=== PATIENT | male | born 1950 | race Caucasian/White ===

== ENCOUNTER 2017-11-10 12:21 | Inpatient (IN) | payer OTHER, MEDICARE ==
[2017-11-10 13:02] VITALS: BMI 23.3
[2017-11-10 13:48] LABS: BASO % 0.5 % (0.0-2.0); EOS # 0.1 K/uL (0.0-0.7); EOS % 1.2 % (0.0-4.0); LYMPH # 0.9 K/uL (1.0-4.3); LYMPH % 11.3 % (20.0-40.0); MEAN CELL VOLUME 84.6 fL (80.0-94.0); MEAN CORPUSCULAR HEMOGLOBIN 28.2 pg (27.0-31.0); MEAN CORPUSCULAR HGB CONC 33.4 g/dL (33.0-37.0); MEAN PLATELET VOLUME 9.6 fL (7.2-11.7); MONO # 0.6 K/uL (0.0-0.8); MONO % 7.5 % (0.0-10.0); NEUT # 6.6 K/uL (1.8-7.0); NEUT % 79.5 % (50.0-75.0); RBC 4.24 Mil/uL (4.40-5.90); RED CELL DISTRIBUTION WIDTH 12.9 % (11.5-14.5); WHITE BLOOD COUNT 8.3 K/uL (4.8-10.8)
[2017-11-10 13:56] LABS: PROTHROMBIN TIME 11.2 SECONDS (9.7-12.2)
--- NOTE | 2017-11-10 15:26 | VASCLAB ---
PROCEDURE: Left Lower Extremity Venous Duplex Exam. HISTORY: LLE swelling. r/o DVT. PRIORS: None. TECHNIQUE: Left common femoral, femoral, popliteal and posterior tibial, peroneal and great saphenous veins were evaluated. Flow was assessed with color Doppler, compressibility, assessment of phasic flow and augmentation response. Report prepared by NICHOL Curtis FINDINGS: LEFT: 1. Common Femoral Vein: 1.1. Compressibility - Fully compressible: Thrombus - None : Flow - Phasic: Augmentation -Normal: Reflux - None. 2. Femoral Vein: 2.1. Compressibility - Fully compressible: Thrombus - None: Flow - Phasic: Augmentation -Normal: Reflux - None. 3. Popliteal Vein: 3.1. Compressibility - Fully compressible: Thrombus - None: Flow - Phasic: Augmentation -Normal: Reflux - None. 4. Posterior Tibial Vein: 4.1. Compressibility - Fully compressible: Thrombus - None: Flow - Phasic: Augmentation -Normal: Reflux - None. 5. Peroneal Vein: 5.1. Compressibility - Fully compressible: Thrombus - None: Flow - Phasic: Augmentation -Normal: Reflux - None. 6. Great Saphenous Vein: 6.1. Compressibility - Fully compressible: Thrombus - None: Flow - Phasic: Augmentation - Normal: Reflux - None. OTHER FINDINGS: IMPRESSION: No evidence of deep or superficial vein thrombosis of the left lower extremity with excellent venous flow. Normal valve function noted of the left side. Normal venous flow noted in the right common femoral vein.
--- NOTE | 2017-11-10 15:29 | RAD ---
PROCEDURE: Left Foot Radiographs. HISTORY: Great toe ulcer/deformity. Foot swelling. COMPARISON: 04/11/2016 FINDINGS: BONES: Interval cortical irregularity ill definition learning for contiguous osteomyelitis the 1st distal phalanx -bordering soft tissue changes compatible with a large great toe ulcer Posterior and inferior calcaneal spurring Dorsal cortical hyperostoses talonavicular and tarsal metatarsal levels JOINTS: First proximal and 1st interphalangeal minimal joint space narrowing -degenerative changes SOFT TISSUES: Great toe tip mottled irregular soft tissue pattern compatible with a large ulcer here. Contiguous 1st distal phalangeal cortical changes concerning for contiguous osteomyelitis OTHER FINDINGS: Few vascular calcification between the 2nd and 3rd metatarsals and probable few phleboliths on oblique view IMPRESSION: Great toe tip mottled irregular soft tissue pattern compatible with a large ulcer here. Contiguous 1st distal phalangeal cortical changes concerning for contiguous osteomyelitis
[2017-11-10 15:40] LABS: ALBUMIN 3.6 g/dL (3.5-5.0); ALT/SGPT 24 U/L (21-72); AST/SGOT 21 U/L (17-59); BLOOD UREA NITROGEN 23 mg/dL (9-20); CALCIUM 8.7 mg/dl (8.6-10.4); GFR AFRICAN-AMERICAN > 60; GFR NON-AFRICAN AMERICAN 55
[2017-11-10] MEDS ORDERED: Piperacillin/Tazobact 3.375 gm 100 ML IVPB STA (16:10)
--- NOTE | 2017-11-10 16:19 | C.PDOC ---
Time Seen by Provider: 11/10/17 13:10 Chief Complaint (Nursing): Abnormal Skin Integrity History Per: Patient Onset/Duration Of Symptoms: Days (few) Current Symptoms Are (Timing): Worse Location Of Injury: Left: Foot (Great toe) Quality Of Symptoms: Painful, Swollen, Draining Severity: Severe Additional History Per: Prior Records Past Medical History Reviewed: Historical Data, Nursing Documentation, Vital Signs Vital Signs: Last Vital Signs Temp 98.3 F 11/10/17 16:12 Pulse 67 11/10/17 16:12 Resp 18 11/10/17 16:12 BP 138/71 11/10/17 16:12 Pulse Ox 98 11/10/17 16:12 - Medical History PMH: Diabetes, HTN Family History: States: Unknown Family Hx - Social History Hx Tobacco Use: No Hx Alcohol Use: No Hx Substance Use: No - Immunization History Hx Tetanus Toxoid Vaccination: No Hx Influenza Vaccination: Yes Hx Pneumococcal Vaccination: No Review Of Systems Except As Marked, All Systems Reviewed And Found Negative. Constitutional: Negative for: Fever Cardiovascular: Negative for: Chest Pain Respiratory: Negative for: Shortness of Breath Gastrointestinal: Negative for: Vomiting, Abdominal Pain Musculoskeletal: Negative for: Neck Pain, Back Pain Skin: Positive for: Lesions Neurological: Negative for: Weakness Physical Exam - Physical Exam Appears: Non-toxic, No Acute Distress Skin: Warm Head: Atraumatic, Normacephalic Eye(s): bilateral: PERRL, EOMI Neck: Normal ROM, Supple Cardiovascular: Rhythm Regular Respiratory: Normal Breath Sounds, No Accessory Muscle Use Gastrointestinal/Abdominal: Soft, No Tenderness Back: No CVA Tenderness, No Vertebral Tenderness Extremity: Normal ROM, Tenderness (left great toe), Pedal Edema (left), Swelling (left leg), Other (Left great toe infected ulcer, deep. ) Pulses: Left Dorsalis Pedis: Normal Neurological/Psych: Oriented x3, Normal Motor ED Course And Treatment - Laboratory Results Result Diagrams: 11/10/17 13:45 11/10/17 15:09 Lab Interpretation: Abnormal Interpretation Of Abnormal: Elevated ESR and CRP O2 Sat by Pulse Oximetry: 98 Pulse Ox Interpretation: Normal - Other Rad Left foot x-rays X-Ray: Viewed By Me, Read By Radiologist Interpretation: IMPRESSION: Great toe tip mottled irregular soft tissue pattern compatible with a large ulcer here. Contiguous 1st distal phalangeal cortical changes concerning for contiguous osteomyelitis - CT Scan/US LLE Duplex Other Rad Studies (CT/US): Read By Radiologist, Radiology Report Reviewed CT/US Interpretation: IMPRESSION: No evidence of deep or superficial vein thrombosis of the left lower extremity with excellent venous flow. Normal valve function noted of the left side. Normal venous flow noted in the right common femoral vein. Disposition Discussed With : Manuela Geronimo Comment: He accepted pt on his service. Doctor Will See Patient In The: Hospital Counseled Patient/Family Regarding: Studies Performed, Diagnosis - Disposition Disposition: HOSPITALIZED Disposition Time: 16:20 Condition: SERIOUS - Clinical Impression Clinical Impression: Acute osteomyelitis of toe of left foot, Diabetic ulcer of toe, Diabetic infection of left foot
[2017-11-10] MEDS ORDERED: Piperacillin/Tazobact 3.375 gm 100 ML IVPB ONE (16:20)
[2017-11-10] MEDS ORDERED: Piperacillin/Tazobact 3.375 GM in Sodium Chloride 100 ML IVPB SCH (20:15)
[2017-11-10] MEDS: Enoxaparin 40 mg Syringe SC SCH (21:53)
[2017-11-10] MEDS: (Novolog) Insulin Aspart, Recombinant 100 u/ml 10 ml vial SC SCH (22:00)
[2017-11-11] MEDS ORDERED: Piperacill/Tazo 3.375gm in Dex 3.375 GM/50 ML BAG IVPB SCH
[2017-11-11] MEDS ORDERED: Piperacill/Tazo 2.25gm in Dex 2.25 GM/50 ML BAG IVPB SCH
[2017-11-11] MEDS: Piperacill/Tazo 2.25gm in Dex 2.25 GM/50 ML BAG IVPB SCH ×4 (00:59→21:26)
--- NOTE | 2017-11-11 04:20 | HP ---
HISTORY OF PRESENT ILLNESS: This is a 67-year-old male, came to the emergency room with history of left big toe infection and swelling. The patient claims this is going on for the last 2 to 3 weeks. Seems it is getting cooled and using tight shoes, it is giving him pain. No history of any fever or chills. The patient has the foot ulcer also, which is appearing chronic. REVIEW OF SYSTEMS: Cardiovascular, respiratory, GI, and [employer] systems are negative. Left foot diabetic ulcer present with mild discharge. Left toe is infected. No urinary complaints. Psychiatrically, the patient is stable. ALLERGIES: THE PATIENT IS ALLERGIC TO METRONIDAZOLE. FAMILY HISTORY: No known family history. SOCIAL HISTORY: Nonsmoker, nonalcoholic, no IVDA. PAST HISTORY: History of hypertension and diabetes. MEDICATIONS: The patient is noncompliant with the medications. PHYSICAL EXAMINATION: GENERAL: This is a 67-year-old male, awake, alert, and comfortable. VITAL SIGNS: Temperature 98.3, pulse 67, respiratory rate 18, blood pressure 138/71 mmHg, and pulse ox is 98% on room air. HEENT: Normal. JVP is flat. Carotids, no bruits. LUNGS: No rales, no wheezing. HEART: S1 and S2 normal. No gallop, no murmur. ABDOMEN: Soft and nontender. No organomegaly. CENTRAL NERVOUS SYSTEM: No focal neurological deficit. EXTREMITIES: The patient has left big toe infection and ulcer secondary to diabetes. Mild discharge present. The patient also has associated cellulitis. LABORATORY DATA: Lab work is within normal limit. IMPRESSION: Left foot diabetic ulcer. Rule out osteomyelitis. Left foot cellulitis. PLAN: The patient will be admitted to the floor. We will get ID evaluation done and workup to rule out osteomyelitis. We will give IV antibiotics. Other workup as needed. Manuela Geronimo MD
[2017-11-11] MEDS: (Novolog) Insulin Aspart, Recombinant 100 u/ml 10 ml vial SC SCH ×5 (07:51→22:12)
[2017-11-11] MEDS: Enoxaparin 40 mg Syringe SC SCH (09:23)
[2017-11-11] MEDS ORDERED: Pneumococcal 23-Valent Vaccine IM ONE (10:00)
--- NOTE | 2017-11-11 12:40 | CP.PCM.PN ---
Subjective - Date & Time of Evaluation Date of Evaluation: 11/11/17 Time of Evaluation: 12:37 - Subjective Subjective: LT FOOT CELLULITIS LT TOE ULCER. R/O OM. AFEBRILE. Objective - Vital Signs/Intake and Output Vital Signs (last 24 hours): Temp Pulse Resp BP Pulse Ox 98.2 F 75 20 124/73 99 11/11/17 08:00 11/11/17 08:00 11/11/17 08:00 11/11/17 08:00 11/11/17 08:00 Intake and Output: 11/11/17 11/11/17 06:59 18:59 Intake Total 220 Balance 220 - Medications Medications: Current Medications Atenolol (Tenormin) 50 mg PO BID [facility] Last Admin: 11/11/17 09:23 Dose: 50 mg Diltiazem HCl (Cardizem) 30 mg PO BID [facility] Last Admin: 11/11/17 09:23 Dose: 30 mg Enoxaparin Sodium (Lovenox) 40 mg SC DAILY [facility] Last Admin: 11/11/17 09:23 Dose: 40 mg Piperacillin Sod/Tazobactam Sod (Zosyn 2.25 Gm Iv Premix) 2.25 gm in 50 mls @ 100 mls/hr IVPB Q8 [facility] Last Admin: 11/11/17 05:16 Dose: 100 mls/hr Insulin Aspart (Novolog) 0 unit SC ACHS [facility] PRN Reason: Protocol Last Admin: 11/11/17 12:14 Dose: Not Given Isosorbide Mononitrate (Ismo) 20 mg PO BID [facility] Last Admin: 11/11/17 09:24 Dose: 20 mg Metformin HCl (Glucophage) 500 mg PO BID [facility] Last Admin: 11/11/17 09:23 Dose: 500 mg - Labs Labs: 11/10/17 13:45 11/10/17 15:09 PT 11.2 SECONDS (9.7-12.2) 11/10/17 13:45 INR 1.0 11/10/17 13:45 APTT 33 SECONDS (21-34) 11/10/17 13:45 - Constitutional Appears: No Acute Distress, Chronically Ill - Eye Exam Eye Exam: Normal appearance, PERRL - ENT Exam ENT Exam: Mucous Membranes Moist - Respiratory Exam Respiratory Exam: Clear to Ausculation Bilateral, NORMAL BREATHING PATTERN - Cardiovascular Exam Cardiovascular Exam: REGULAR RHYTHM, +S1, +S2 - GI/Abdominal Exam GI & Abdominal Exam: Soft, Normal Bowel Sounds - Neurological Exam Neurological Exam: Alert, Awake, CN II-XII Intact, Normal Gait, Oriented x3 - Psychiatric Exam Psychiatric exam: Normal Affect, Normal Mood - Additional Findings Additional findings: LT BIG TOE ULCER NON HEALING. Assessment and Plan - Assessment and Plan (Free Text) Assessment: DIABETIC FOOT ULCER. DM. R/O OM. HTN. Plan: FOR MRI LT FOOT. ARTERIAL DOPPLER. ZOSYN. ID AND PODIETRY EVAL.
--- NOTE | 2017-11-11 16:33 | CP.PCM.CON ---
<Yung Meyer - Last Filed: 11/11/17 16:26> History of Present Illness - History of Present Illness History of Present Illness: Podiatry note for Dr. Oh Ruiz 67 year old male patient with PMHx of DM with peripheral neuropathy,HTN was seen at bedside this afternoon after request for podiatry consultation concerning Open ulcer to Left hallux. Patient states that he first noticed the open wound about 10 days from today, but it could have been longer. He denies of any trauma to the Left hallux, and does not recall how the ulcer started. He states that it is possible that he stepped on something and did not realize at the time due to neuropathy. 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 Patient denies of any N/V/F/C associated with the ulceration. Patient denies of any other pedal complains. Patient denies of any N/V/F/C or SOB today Review of Systems - Constitutional Constitutional: As Per HPI Past Patient History - Past Medical History & Family History Past Medical History?: Yes - Past Social History Smoking Status: Never Smoked - CARDIAC Hx Hypertension: Yes - ENDOCRINE/METABOLIC Hx Diabetes Mellitus Type 2: Yes - MUSCULOSKELETAL/RHEUMATOLOGICAL Hx Falls: No - PSYCHIATRIC Hx Substance Use: No - SURGICAL HISTORY Hx Surgeries: Yes - ANESTHESIA Hx Anesthesia: Yes Hx Anesthesia Reactions: No Meds Allergies/Adverse Reactions: Allergies Allergy/AdvReac Type Severity Reaction Status Date / Time metronidazole [From Flagyl] Allergy Intermediate SWELLING Verified 11/10/17 13: 01 - Medications Medications: Current Medications Atenolol (Tenormin) 50 mg PO BID [facility] Last Admin: 11/11/17 09:23 Dose: 50 mg Brimonidine Tartrate (Alphagan 0.2% Opht) 0 ml OU Q12 [facility] Diltiazem HCl (Cardizem) 30 mg PO BID [facility] Last Admin: 11/11/17 09:23 Dose: 30 mg Dorzolamide HCl (Trusopt) 0 ml OU Q12 [facility] Enalapril Maleate (Vasotec) 10 mg PO DAILY [facility] Enoxaparin Sodium (Lovenox) 40 mg SC DAILY [facility] Last Admin: 11/11/17 09:23 Dose: 40 mg Piperacillin Sod/Tazobactam Sod (Zosyn 2.25 Gm Iv Premix) 2.25 gm in 50 mls @ 100 mls/hr IVPB Q8 [facility] Last Admin: 11/11/17 13:36 Dose: 100 mls/hr Insulin Aspart (Novolog) 0 unit SC ACHS [facility] PRN Reason: Protocol Last Admin: 11/11/17 12:14 Dose: Not Given Isosorbide Mononitrate (Ismo) 20 mg PO BID [facility] Last Admin: 11/11/17 09:24 Dose: 20 mg Latanoprost (Xalatan Opht) 0 ml OU HS [facility] Metformin HCl (Glucophage) 500 mg PO BID [facility] Last Admin: 11/11/17 09:23 Dose: 500 mg Timolol Maleate (Timoptic 0.5% Ophth Soln) 1 drop OU Q12H [facility] Physical Exam - Constitutional Appears: Well, Non-toxic, No Acute Distress - Head Exam Head Exam: ATRAUMATIC - Extremities Exam Additional comments: Lower extremity exam DERM: Chronic ulcerations with exposed bone to Left foot. No acute infection is noted. Right: Unremarkable. Left: - Open ulceration noted to distal aspect of Left hallux measuring 4cm x 3cm x 1cm with fibrotic base. Purulent drainage is noted. Malodor present. Probes to bone. Erythema noted around the ulceration <2cm marginal thickness. VASC: Right: Palpable DP and PT noted bilaterally. [employer] less than 3 seconds noted to all remaining digits LEFT: NON-palpable DP and PT noted bilaterally. [employer] less than 3 seconds noted to all remaining digits ORTHO: Decreased ROM to bilateral lower extremities to joints distal to ankle. NEURO: Gross sensation diminished. - Neurological Exam Neurological exam: Alert, Oriented x3 - Psychiatric Exam Psychiatric exam: Normal Affect, Normal Mood - Skin Skin Exam: Normal Color, Warm Results - Vital Signs Recent Vital Signs: Last Vital Signs Temp 97.8 F 11/11/17 15:00 Pulse 70 11/11/17 15:00 Resp 20 11/11/17 15:00 BP 155/86 H 11/11/17 15:00 Pulse Ox 99 11/11/17 15:00 - Labs Result Diagrams: 11/10/17 13:45 11/10/17 15:09 Labs: Laboratory Results - last 24 hr 11/10/17 11/11/17 11/11/17 22:24 11:41 16:11 POC Glucose (mg/dL) 118 H 194 H 213 H Assessment & Plan - Assessment and Plan (Free Text) Assessment: 67 yo male patient presents with open ulceration to Left hallux Plan: Patient was seen, evaluated discussed in detail with attending Dr. Ruiz labs and vitals reviewed; afebrile Xray for bilateral feet reveals signs consistent with osteomyelitis to Left hallux involving distal phalanx Left foot was dressed with Betadine DSD. MRI ordered - pending Vascular consult placed for possible amputation Podiatry will continue to follow inhouse <Oh Ruiz - Last Filed: 11/12/17 11:39> Meds - Medications Medications: Current Medications Atenolol (Tenormin) 50 mg PO BID [facility] Last Admin: 11/12/17 10:35 Dose: 50 mg Brimonidine Tartrate (Alphagan 0.2% Opht) 0 ml OU Q12 [facility] Last Admin: 11/12/17 11:18 Dose: 1 drop Diltiazem HCl (Cardizem) 30 mg PO BID [facility] Last Admin: 11/12/17 10:33 Dose: 30 mg Dorzolamide HCl (Trusopt) 0 ml OU Q12 [facility] Last Admin: 11/12/17 10:36 Dose: 1 drop Enalapril Maleate (Vasotec) 10 mg PO DAILY [facility] Last Admin: 11/12/17 10:33 Dose: 10 mg Enoxaparin Sodium (Lovenox) 40 mg SC DAILY [facility] Last Admin: 11/12/17 10:35 Dose: 40 mg Piperacillin Sod/Tazobactam Sod (Zosyn 2.25 Gm Iv Premix) 2.25 gm in 50 mls @ 100 mls/hr IVPB Q8 [facility] Last Admin: 11/12/17 05:18 Dose: 100 mls/hr Daptomycin 450 mg/ Sodium (Chloride) 100 mls @ 100 mls/hr IV Q24H [facility] Stop: 11/16/17 20:01 Last Admin: 11/11/17 19:44 Dose: 100 mls/hr Insulin Aspart (Novolog) 0 unit SC ACHS [facility] PRN Reason: Protocol Last Admin: 11/12/17 11:23 Dose: Not Given Isosorbide Mononitrate (Ismo) 20 mg PO BID [facility] Last Admin: 11/12/17 11:18 Dose: 20 mg Latanoprost (Xalatan Opht) 0 ml OU HS [facility] Last Admin: 11/11/17 22:02 Dose: 2.5 ml Metformin HCl (Glucophage) 500 mg PO BID [facility] Last Admin: 11/12/17 10:35 Dose: 500 mg Pneumococcal Polyvalent Vaccine (Pneumovax 23 Vaccine) 0.5 ml IM .ONCE ONE Stop: 11/16/17 10:01 Timolol Maleate (Timoptic 0.5% Ophth Soln) 1 drop OU Q12H [facility] Last Admin: 11/12/17 10:36 Dose: 1 drop Results - Vital Signs Recent Vital Signs: Last Vital Signs Temp 98.1 F 11/12/17 00:00 Pulse 65 11/12/17 00:00 Resp 20 11/12/17 00:00 BP 150/83 11/12/17 10:33 Pulse Ox 97 11/12/17 00:00 - Labs Result Diagrams: 11/10/17 13:45 11/10/17 15:09 Labs: Laboratory Results - last 24 hr 11/11/17 11/11/17 11/11/17 07:32 11:41 16:11 POC Glucose (mg/dL) 97 194 H 213 H Hemoglobin A1c C-React Prot High Sens 11/11/17 11/12/17 11/12/17 21:13 07:00 07:00 POC Glucose (mg/dL) 159 H Hemoglobin A1c 12.0 H D C-React Prot High Sens > 15.00 H 11/12/17 11/12/17 07:33 11:21 POC Glucose (mg/dL) 134 H 257 H Hemoglobin A1c C-React Prot High Sens Attending/Attestation - Attestation I have fully participated in the care of the patient.: Yes I have reviewed all pertinent clinical information: Yes
[2017-11-11] MEDS ORDERED: Gadodiamide 287 MG/ML VIAL (15ML) IV ONE (17:14)
--- NOTE | 2017-11-11 17:20 | CP.PCM.CON ---
History of Present Illness - History of Present Illness History of Present Illness: Vascular Surgery Note for Dr. Gibbs Reason for consult: gangrenous L hallux 67 M with PMH of HTN, DM, peripheral neuropathy was admitted for L hallux gangrene. Patient states that he had noticed some skin changes for the last 8- 10 days. At first, he didn't think anything of it then it had gotten progressively worse so he decided to be seen. Patient has had problems with L foot digits previously and had to have what he calls "infection and debridement of the L 2nd digit." He denies any trauma. Currently, denies any pain. Denies any exacerbating or alleviating factors. Patient reports that podiatry saw him today and debrided his toe then applied a clean dressing. Admits to neuropathy in feet. Denies fever/chills, palpitations, chest pain, SOB, nausea/vomiting/ diarrhea. ROS negative unless stated otherwise. 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 Review of Systems - Review of Systems All systems: reviewed and no additional remarkable complaints except (as per hPI ) Past Patient History - Past Medical History & Family History Past Medical History?: Yes - Past Social History Smoking Status: Never Smoked - CARDIAC Hx Hypertension: Yes - ENDOCRINE/METABOLIC Hx Diabetes Mellitus Type 2: Yes - MUSCULOSKELETAL/RHEUMATOLOGICAL Hx Falls: No - PSYCHIATRIC Hx Substance Use: No - SURGICAL HISTORY Hx Surgeries: Yes - ANESTHESIA Hx Anesthesia: Yes Hx Anesthesia Reactions: No Meds Allergies/Adverse Reactions: Allergies Allergy/AdvReac Type Severity Reaction Status Date / Time metronidazole [From Flagyl] Allergy Intermediate SWELLING Verified 11/10/17 13: 01 - Medications Medications: Current Medications Atenolol (Tenormin) 50 mg PO BID [facility] Last Admin: 11/11/17 09:23 Dose: 50 mg Brimonidine Tartrate (Alphagan 0.2% Opht) 0 ml OU Q12 [facility] Diltiazem HCl (Cardizem) 30 mg PO BID [facility] Last Admin: 11/11/17 09:23 Dose: 30 mg Dorzolamide HCl (Trusopt) 0 ml OU Q12 [facility] Enalapril Maleate (Vasotec) 10 mg PO DAILY [facility] Enoxaparin Sodium (Lovenox) 40 mg SC DAILY [facility] Last Admin: 11/11/17 09:23 Dose: 40 mg Piperacillin Sod/Tazobactam Sod (Zosyn 2.25 Gm Iv Premix) 2.25 gm in 50 mls @ 100 mls/hr IVPB Q8 [facility] Last Admin: 11/11/17 13:36 Dose: 100 mls/hr Insulin Aspart (Novolog) 0 unit SC ACHS [facility] PRN Reason: Protocol Last Admin: 11/11/17 12:14 Dose: Not Given Isosorbide Mononitrate (Ismo) 20 mg PO BID [facility] Last Admin: 11/11/17 09:24 Dose: 20 mg Latanoprost (Xalatan Opht) 0 ml OU HS [facility] Metformin HCl (Glucophage) 500 mg PO BID [facility] Last Admin: 11/11/17 09:23 Dose: 500 mg Timolol Maleate (Timoptic 0.5% Ophth Soln) 1 drop OU Q12H [facility] Physical Exam - Constitutional Appears: No Acute Distress - Head Exam Head Exam: ATRAUMATIC, NORMOCEPHALIC - Eye Exam Eye Exam: EOMI, Normal appearance Pupil Exam: PERRL - ENT Exam ENT Exam: Mucous Membranes Moist - Respiratory Exam Respiratory Exam: NORMAL BREATHING PATTERN - Cardiovascular Exam Cardiovascular Exam: REGULAR RHYTHM - GI/Abdominal Exam GI & Abdominal Exam: Soft. absent: Tenderness - Extremities Exam Additional comments: LLE: podiatric dressing clean, dry, intact, palpable DP/PT pulses, warm to touch , edema, tenderness RLE: palpable DP/PT pulses, cold to touch, nontender - Back Exam Back exam: absent: CVA tenderness (L), CVA tenderness (R) - Neurological Exam Neurological exam: Alert, CN II-XII Intact, Oriented x3 - Psychiatric Exam Psychiatric exam: Normal Affect, Normal Mood - Skin Skin Exam: Dry, Warm Results - Vital Signs Recent Vital Signs: Last Vital Signs Temp 97.8 F 11/11/17 15:00 Pulse 70 11/11/17 15:00 Resp 20 11/11/17 15:00 BP 155/86 H 11/11/17 15:00 Pulse Ox 99 11/11/17 15:00 - Labs Result Diagrams: 11/10/17 13:45 11/10/17 15:09 Labs: Laboratory Results - last 24 hr 11/10/17 11/11/17 11/11/17 22:24 07:32 11:41 POC Glucose (mg/dL) 118 H 97 194 H 11/11/17 16:11 POC Glucose (mg/dL) 213 H Assessment & Plan - Assessment and Plan (Free Text) Plan: 67 M with PMH of DM with L hallux gangrene with palpable DP/PT pulses -f/u LE MRI -f/u LE Arterial PVR/SEG -IV antibiotics -IV fluids -Analgesics PRN -Will discuss with Dr. Sai Tabares PGY1
--- NOTE | 2017-11-11 18:52 | CP.PCM.CON ---
History of Present Illness - History of Present Illness History of Present Illness: 67 year old male patient with PMHx of DM with peripheral neuropathy,HTN was seen at bedside this afternoon after request for podiatry consultation concerning Open ulcer to Left hallux. Patient states that he first noticed the open wound about 10 days from today, but it could have been longer. He denies of any trauma to the Left hallux, and does not recall how the ulcer started. He states that it is possible that he stepped on something and did not realize at the time due to neuropathy. 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 Patient denies of any N/V/F/C associated with the ulceration. Patient denies of any other pedal complains. Patient denies of any N/V/F/C or SOB today Review of Systems - Constitutional Constitutional: As Per HPI - EENT Eyes: absent: As Per HPI, Blind Spots, Blurred Vision, Change in Vision, Decreased Night Vision, Diplopia, Discharge, Dry Eye, Exophthalmos, Floaters, Irritation, Itchy Eyes, Loss of Peripheral Vision, Pain, Photophobia, Requires Corrective Lenses, Sees Flashes, Spots in Vision, Tunnel Vision, Other Visual Disturbances, Loss of Vision, Other Ears: absent: As Per HPI, Decreased Hearing, Ear Discharge, Ear Pain, Tinnitus, Abnormal Hearing, Disequilibrium, Dizziness, Other Nose/Mouth/Throat: absent: As Per HPI, Epistaxis, Nasal Congestion, Nasal Discharge, Nasal Obstruction, Nasal Trauma, Nose Pain, Post Nasal Drip, Sinus Pain, Sinus Pressure, Bleeding Gums, Change in Voice, Dental Pain, Dry Mouth, Dysphagia, Halitosis, Hoarsness, Lip Swelling, Mouth Lesions, Mouth Pain, Odynophagia, Sore Throat, Throat Swelling, Tongue Swelling, Facial Pain, Neck Pain, Neck Mass, Other - Cardiovascular Cardiovascular: absent: As Per HPI, Acrocyanosis, Chest Pain, Chest Pain at Rest , Chest Pain with Activity, Claudication, Diaphoresis, Dyspnea, Dyspnea on Exertion, Edema, Irregular Heart Rhythm, Pain Radiating to Arm/Neck/Jaw, Leg Edema, Leg Ulcers, Lightheadedness, Orthopnea, Palpitations, Paroxysmal Nocturnal Dyspnea, Pedal Edema, Radiating Pain, Rapid Heart Rate, Slow Heart Rate, Syncope, Other - Respiratory Respiratory: absent: As Per HPI, Cough, Dyspnea, Hemoptysis, Dyspnea on Exertion , Wheezing, Snoring, Stridor, Pain on Inspiration, Chest Congestion, Excessive Mucous Production, Change in Mucous Color, Pain with Coughing, Other - Gastrointestinal Gastrointestinal: absent: As Per HPI, Abdominal Pain, Belching, Bloating, Change in Bowel Habits, Change in Stool Character, Coffee Ground Emesis, Constipation, Cramping, Diarrhea, Dyspepsia, Dysphagia, Early Satiety, Excessive Flatus, Fecal Incontinence, Heartburn, Hematemesis, Hematochezia, Loose Stools, Melena, Nausea, Odynophagia, Temesmus, Vomiting, Other - Genitourinary Genitourinary: absent: As Per HPI, Change in Urinary Stream, Difficulty Urinating, Dysuria, Flank Pain, Hematuria, Pyuria, Nocturia, Urinary Incontinence, Urinary Frequency, Urinary Hesitance, Urinary Urgency, Voiding Freq/Small Amts, Freq UTI, Hx Renal/Bladder Calculi, Hx /Renal Surgery, Bladder Distension, Other - Musculoskeletal Musculoskeletal: As Per HPI - Integumentary Integumentary: As Per HPI, Skin Pain, Wounds - Neurological Neurological: absent: As Per HPI, Abnormal Gait, Abnormal Hearing, Abnormal Movements, Abnormal Speech, Behavioral Changes, Burning Sensations, Confusion, Convulsions, Disequilibrium, Dizziness, Numbness, Focal Weakness, Frequent Falls , Headaches, Lack of Coordination, Loss of Vision, Memory Loss, Paresthesias, Radicular Pain, Restless Legs, Sensory Deficit, Syncope, Tingling, Tremor, Vertigo, Weakness, Other Visual Disturbances, Other - Psychiatric Psychiatric: absent: As Per HPI, Abnormal Sleep Pattern, Anhedonia, Anxiety, Auditory Hallucinations, Behavioral Changes, Change in Appetite, Change in Libido, Confusion, Depression, Difficulty Concentrating, Hallucinations, Homicidal Ideation, Hopelessness, Irritability, Memory Loss, Mood Swings, Panic Attacks, Paranoia, Suicidal Ideation, Visual Hallucinations, Tactile Hallucinations, Other - Endocrine Endocrine: absent: As Per HPI, Change in Body Appearance, Change in Libido, Cold Intolorance, Deepening of Voice, Excessive Sweating, Fatigue, Flushing, Heat Intolorance, Increase in Ring/Shoe/Hat Size, Palpitations, Polydipsia, Polyphagia, Polyuria, Other - Hematologic/Lymphatic Hematologic: absent: As Per HPI, Easy Bleeding, Easy Bruising, Lymphadenopathy, Other Past Patient History - Past Medical History & Family History Past Medical History?: Yes - Past Social History Smoking Status: Never Smoked - CARDIAC Hx Hypertension: Yes - ENDOCRINE/METABOLIC Hx Diabetes Mellitus Type 2: Yes - MUSCULOSKELETAL/RHEUMATOLOGICAL Hx Falls: No - PSYCHIATRIC Hx Substance Use: No - SURGICAL HISTORY Hx Surgeries: Yes - ANESTHESIA Hx Anesthesia: Yes Hx Anesthesia Reactions: No Meds Allergies/Adverse Reactions: Allergies Allergy/AdvReac Type Severity Reaction Status Date / Time metronidazole [From Flagyl] Allergy Intermediate SWELLING Verified 11/10/17 13: 01 - Medications Medications: Current Medications Atenolol (Tenormin) 50 mg PO BID [facility] Last Admin: 11/11/17 18:05 Dose: 50 mg Brimonidine Tartrate (Alphagan 0.2% Opht) 0 ml OU Q12 [facility] Diltiazem HCl (Cardizem) 30 mg PO BID [facility] Last Admin: 11/11/17 18:05 Dose: 30 mg Dorzolamide HCl (Trusopt) 0 ml OU Q12 [facility] Enalapril Maleate (Vasotec) 10 mg PO DAILY [facility] Enoxaparin Sodium (Lovenox) 40 mg SC DAILY [facility] Last Admin: 11/11/17 09:23 Dose: 40 mg Piperacillin Sod/Tazobactam Sod (Zosyn 2.25 Gm Iv Premix) 2.25 gm in 50 mls @ 100 mls/hr IVPB Q8 [facility] Last Admin: 11/11/17 13:36 Dose: 100 mls/hr Insulin Aspart (Novolog) 0 unit SC ACHS [facility] PRN Reason: Protocol Last Admin: 11/11/17 18:07 Dose: Not Given Isosorbide Mononitrate (Ismo) 20 mg PO BID [facility] Last Admin: 11/11/17 18:05 Dose: 20 mg Latanoprost (Xalatan Opht) 0 ml OU HS [facility] Metformin HCl (Glucophage) 500 mg PO BID [facility] Last Admin: 11/11/17 18:05 Dose: 500 mg Timolol Maleate (Timoptic 0.5% Ophth Soln) 1 drop OU Q12H [facility] Physical Exam - Constitutional Appears: Non-toxic, Chronically Ill - Head Exam Head Exam: NORMOCEPHALIC - Eye Exam Eye Exam: PERRL - ENT Exam ENT Exam: Mucous Membranes Dry - Neck Exam Neck exam: Negative for: Lymphadenopathy - Respiratory Exam Respiratory Exam: Decreased Breath Sounds - Cardiovascular Exam Cardiovascular Exam: REGULAR RHYTHM - GI/Abdominal Exam GI & Abdominal Exam: Diminished Bowel Sounds, Soft. absent: Tenderness - Rectal Exam Rectal Exam: Deferred - Exam Exam: NORMAL INSPECTION - Extremities Exam Extremities exam: Positive for: pedal edema, pedal pulses present. Negative for : tenderness Additional comments: Lower extremity exam DERM: Chronic ulcerations with exposed bone to Left foot. No acute infection is noted. Right: Unremarkable. Left: - Open ulceration noted to distal aspect of Left hallux measuring 4cm x 3cm x 1cm with fibrotic base. Purulent drainage is noted. Malodor present. Probes to bone. Erythema noted around the ulceration <2cm marginal thickness. VASC: Right: Palpable DP and PT noted bilaterally. RADIO PROGRAM DIRECTOR less than 3 seconds noted to all remaining digits LEFT: NON-palpable DP and PT noted bilaterally. RADIO PROGRAM DIRECTOR less than 3 seconds noted to all remaining digits ORTHO: Decreased ROM to bilateral lower extremities to joints distal to ankle. NEURO: Gross sensation diminished. - Back Exam Back exam: absent: CVA tenderness (L), CVA tenderness (R) - Neurological Exam Neurological exam: Alert, CN II-XII Intact, Oriented x3, Reflexes Normal - Psychiatric Exam Psychiatric exam: Normal Mood - Skin Skin Exam: Dry Results - Vital Signs Recent Vital Signs: Last Vital Signs Temp 97.8 F 11/11/17 15:00 Pulse 72 11/11/17 18:09 Resp 18 11/11/17 18:09 BP 148/84 11/11/17 18:09 Pulse Ox 100 11/11/17 18:09 - Labs Result Diagrams: 11/10/17 13:45 11/10/17 15:09 Labs: Laboratory Results - last 24 hr 11/10/17 11/11/17 11/11/17 22:24 07:32 11:41 POC Glucose (mg/dL) 118 H 97 194 H 11/11/17 16:11 POC Glucose (mg/dL) 213 H Assessment & Plan - Assessment and Plan (Free Text) Assessment: OM left great toe IV antibiotics in progress May need amp ? cont IV rx for 6-8 weeks
[2017-11-11 19:18] VITALS: RESP 20
[2017-11-11] MEDS: Dorzolamide 2% Opht Sol 10ml OU SCH (22:01)
[2017-11-11] MEDS: Latanoprost 2.5 ml Opht Soln OU SCH (22:02)
[2017-11-11] MEDS: Brimonidine 0.2% Opth Sol (5ml) OU SCH (22:10)
[2017-11-12] MEDS: Piperacill/Tazo 2.25gm in Dex 2.25 GM/50 ML BAG IVPB SCH ×3 (05:18→22:49)
[2017-11-12] MEDS: (Novolog) Insulin Aspart, Recombinant 100 u/ml 10 ml vial SC SCH ×3 (07:56→17:01)
--- NOTE | 2017-11-12 10:19 | CP.PCM.PN ---
Subjective - Date & Time of Evaluation Date of Evaluation: 11/12/17 Time of Evaluation: 10:16 - Subjective Subjective: Vascular Surgery Pt s&e. NAEON. Dressing changed by podiatry. L toe area Saturated w ss fluids. Denies F/C/N/V/D/CP/SOB. Objective - Vital Signs/Intake and Output Vital Signs (last 24 hours): Temp Pulse Resp BP Pulse Ox 98.1 F 65 20 132/76 97 11/12/17 00:00 11/12/17 00:00 11/12/17 00:00 11/12/17 00:00 11/12/17 00:00 Intake and Output: 11/12/17 11/12/17 06:59 18:59 Intake Total 820 Balance 820 - Medications Medications: Current Medications Atenolol (Tenormin) 50 mg PO BID [facility] Last Admin: 11/11/17 18:05 Dose: 50 mg Brimonidine Tartrate (Alphagan 0.2% Opht) 0 ml OU Q12 [facility] Last Admin: 11/11/17 22:10 Dose: Not Given Diltiazem HCl (Cardizem) 30 mg PO BID [facility] Last Admin: 11/11/17 18:05 Dose: 30 mg Dorzolamide HCl (Trusopt) 0 ml OU Q12 [facility] Last Admin: 11/11/17 22:01 Dose: 1 drop Enalapril Maleate (Vasotec) 10 mg PO DAILY [facility] Enoxaparin Sodium (Lovenox) 40 mg SC DAILY [facility] Last Admin: 11/11/17 09:23 Dose: 40 mg Piperacillin Sod/Tazobactam Sod (Zosyn 2.25 Gm Iv Premix) 2.25 gm in 50 mls @ 100 mls/hr IVPB Q8 [facility] Last Admin: 11/12/17 05:18 Dose: 100 mls/hr Daptomycin 450 mg/ Sodium (Chloride) 100 mls @ 100 mls/hr IV Q24H [facility] Stop: 11/16/17 20:01 Last Admin: 11/11/17 19:44 Dose: 100 mls/hr Insulin Aspart (Novolog) 0 unit SC ACHS [facility] PRN Reason: Protocol Last Admin: 11/12/17 07:56 Dose: Not Given Isosorbide Mononitrate (Ismo) 20 mg PO BID [facility] Last Admin: 11/11/17 18:05 Dose: 20 mg Latanoprost (Xalatan Opht) 0 ml OU HS [facility] Last Admin: 11/11/17 22:02 Dose: 2.5 ml Metformin HCl (Glucophage) 500 mg PO BID [facility] Last Admin: 11/11/17 18:05 Dose: 500 mg Pneumococcal Polyvalent Vaccine (Pneumovax 23 Vaccine) 0.5 ml IM .ONCE ONE Stop: 11/16/17 10:01 Timolol Maleate (Timoptic 0.5% Ophth Soln) 1 drop OU Q12H [facility] Last Admin: 11/11/17 22:01 Dose: 1 drop - Labs Labs: 11/10/17 13:45 11/10/17 15:09 PT 11.2 SECONDS (9.7-12.2) 11/10/17 13:45 INR 1.0 11/10/17 13:45 APTT 33 SECONDS (21-34) 11/10/17 13:45 - Constitutional Appears: No Acute Distress - Head Exam Head Exam: ATRAUMATIC, NORMAL INSPECTION, NORMOCEPHALIC - Eye Exam Eye Exam: EOMI, Normal appearance, PERRL Pupil Exam: NORMAL ACCOMODATION, PERRL - ENT Exam ENT Exam: Mucous Membranes Moist, Normal Exam - Neck Exam Neck Exam: Full ROM, Normal Inspection. absent: Lymphadenopathy - Respiratory Exam Respiratory Exam: Clear to Ausculation Bilateral, NORMAL BREATHING PATTERN - Cardiovascular Exam Cardiovascular Exam: REGULAR RHYTHM, +S1, +S2. absent: Murmur - GI/Abdominal Exam GI & Abdominal Exam: Soft, Normal Bowel Sounds. absent: Distended, Tenderness - Extremities Exam Extremities Exam: Full ROM, Normal Capillary Refill. absent: Joint Swelling, Pedal Edema Additional comments: L foot dressing in place. Saturated around the toes w SS fluids. palpable Pulses - Back Exam Back Exam: NORMAL INSPECTION - Neurological Exam Neurological Exam: Alert, Awake, CN II-XII Intact, Oriented x3 - Psychiatric Exam Psychiatric exam: Normal Affect, Normal Mood - Skin Skin Exam: Warm. 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 Gibbs
--- NOTE | 2017-11-12 10:34 | MRI ---
PROCEDURE: MRI Left Foot without and with IV contrast HISTORY: Pain. Evaluate for osteomyelitis. COMPARISON: Left foot x-rays 11/10/2017 TECHNIQUE: Multiecho multiplanar sequences were performed through the left foot without and with the use of intravenous contrast. 15 cc Omniscan IV contrast was administered. FINDINGS: BONES: Extensive marrow edema of the 1st distal phalanx as well as contrast enhancement in this region. Cortical irregularity also noted. Overall findings consistent with osteomyelitis. MUSCLES: Edema noted within the visualized muscles. No focal fluid collection identified to suggest abscess. SOFT TISSUES: Soft tissue skin defect noted of the distal 1st phalanx, consistent with skin ulcer. Diffuse subcutaneous edema noted of the visualized foot. LISFRANC LIGAMENT: Intact EXTENSOR TENDONS: Intact FLEXOR TENDONS: Intact OTHER FINDINGS: None. IMPRESSION: Osteomyelitis 1st distal phalanx as above. Soft tissue ulcer of the 1st distal phalanx. Diffuse subcutaneous and deep soft tissue edema of the foot. Preliminary impression was provided by [facility]. Findings are concordant.
[2017-11-12] MEDS: Enoxaparin 40 mg Syringe SC SCH (10:35)
[2017-11-12] MEDS: Dorzolamide 2% Opht Sol 10ml OU SCH ×2 (10:36→21:12)
[2017-11-12] MEDS: Brimonidine 0.2% Opth Sol (5ml) OU SCH ×2 (11:18→21:28)
--- NOTE | 2017-11-12 12:53 | CP.PCM.PN ---
<Yung Meyer - Last Filed: 11/12/17 12:49> Subjective - Date & Time of Evaluation Date of Evaluation: 11/12/17 Time of Evaluation: 10:49 - Subjective Subjective: Podiatry note for Dr. Oh Ruiz 67 year old male patient was seen at bedside this afternoon with attending Dr. Ruiz concerning Open ulcer to Left hallux. Patient was resting comfortably in bed with No overnight acute distress. AAOx3. Patient denies of any pain to the Left hallux today. Patient was explained of the imaging results of Xray and MRI being positive for osteomyelitis at the distal aspect of Left hallux, and was explained of treatment courses including amputation and detention IV abx. Patient was resistant for amputation and requested IV abx treatment. Patient was explained of possible outcomes of IV abx treatment including further advancement of bone infection. Patient denies of any N/V/F/C associated with the ulceration. Patient denies of any other pedal complains. Patient denies of any N/V/F/C or SOB today Objective - Vital Signs/Intake and Output Vital Signs (last 24 hours): Temp Pulse Resp BP Pulse Ox 98.1 F 65 20 150/83 97 11/12/17 00:00 11/12/17 00:00 11/12/17 00:00 11/12/17 10:33 11/12/17 00:00 Intake and Output: 11/12/17 11/12/17 06:59 18:59 Intake Total 820 Balance 820 - Medications Medications: Current Medications Atenolol (Tenormin) 50 mg PO BID [facility] Last Admin: 11/12/17 10:35 Dose: 50 mg Brimonidine Tartrate (Alphagan 0.2% Opht) 0 ml OU Q12 [facility] Last Admin: 11/12/17 11:18 Dose: 1 drop Diltiazem HCl (Cardizem) 30 mg PO BID [facility] Last Admin: 11/12/17 10:33 Dose: 30 mg Dorzolamide HCl (Trusopt) 0 ml OU Q12 [facility] Last Admin: 11/12/17 10:36 Dose: 1 drop Enalapril Maleate (Vasotec) 10 mg PO DAILY [facility] Last Admin: 11/12/17 10:33 Dose: 10 mg Enoxaparin Sodium (Lovenox) 40 mg SC DAILY [facility] Last Admin: 11/12/17 10:35 Dose: 40 mg Piperacillin Sod/Tazobactam Sod (Zosyn 2.25 Gm Iv Premix) 2.25 gm in 50 mls @ 100 mls/hr IVPB Q8 [facility] Last Admin: 11/12/17 05:18 Dose: 100 mls/hr Daptomycin 450 mg/ Sodium (Chloride) 100 mls @ 100 mls/hr IV Q24H [facility] Stop: 11/16/17 20:01 Last Admin: 11/11/17 19:44 Dose: 100 mls/hr Insulin Aspart (Novolog) 0 unit SC ACHS [facility] PRN Reason: Protocol Last Admin: 11/12/17 11:23 Dose: Not Given Isosorbide Mononitrate (Ismo) 20 mg PO BID [facility] Last Admin: 11/12/17 11:18 Dose: 20 mg Latanoprost (Xalatan Opht) 0 ml OU HS [facility] Last Admin: 11/11/17 22:02 Dose: 2.5 ml Metformin HCl (Glucophage) 500 mg PO BID [facility] Last Admin: 11/12/17 10:35 Dose: 500 mg Pneumococcal Polyvalent Vaccine (Pneumovax 23 Vaccine) 0.5 ml IM .ONCE ONE Stop: 11/16/17 10:01 Timolol Maleate (Timoptic 0.5% Oph Soln) 1 drop OU Q12H [facility] Last Admin: 11/12/17 10:36 Dose: 1 drop - Labs Labs: 11/10/17 13:45 11/10/17 15:09 PT 11.2 SECONDS (9.7-12.2) 11/10/17 13:45 INR 1.0 11/10/17 13:45 APTT 33 SECONDS (21-34) 11/10/17 13:45 - Constitutional Appears: Well, Non-toxic, No Acute Distress - Head Exam Head Exam: ATRAUMATIC - Extremities Exam Additional comments: Lower extremity exam DERM: Chronic ulcerations with exposed bone to Left foot. No acute infection is noted. Right: Unremarkable. Left: - Open ulceration noted to distal aspect of Left hallux measuring 4cm x 3cm x 1cm with fibrotic base. Purulent drainage is noted. Malodor present. Probes to bone. Erythema noted around the ulceration <2cm marginal thickness. VASC: Right: Palpable DP and PT noted bilaterally. BEAM RACKER less than 3 seconds noted to all remaining digits LEFT: NON-palpable DP and PT noted bilaterally. BEAM RACKER less than 3 seconds noted to all remaining digits ORTHO: Decreased ROM to bilateral lower extremities to joints distal to ankle. NEURO: Gross sensation diminished. - Neurological Exam Neurological Exam: Alert, Awake, Oriented x3 - Psychiatric Exam Psychiatric exam: Normal Affect, Normal Mood - Skin Skin Exam: Normal Color, Warm Assessment and Plan - Assessment and Plan (Free Text) Assessment: 67 yo male patient presents with open ulceration to Left hallux Plan: Patient was seen, evaluated discussed in detail with attending Dr. Ruiz labs and vitals reviewed; afebrile Xray for bilateral feet reveals signs consistent with osteomyelitis to Left hallux involving distal phalanx MRI - reveals signs consistent with osteomyelitis to Left hallux involving distal phalanx Left foot was dressed with Betadine DSD. Dakin soln 0.25% ordered PICC line ordered Vascular note appreciated. Podiatry will continue to follow inhouse <Oh Ruiz - Last Filed: 11/13/17 08:27> Objective - Vital Signs/Intake and Output Vital Signs (last 24 hours): Temp Pulse Resp BP Pulse Ox 97.9 F 68 20 137/75 97 11/13/17 00:00 11/13/17 00:00 11/13/17 00:00 11/13/17 00:00 11/13/17 00:00 Intake and Output: 11/13/17 11/13/17 06:59 18:59 Intake Total 350 850 Output Total 500 0 Balance -150 850 - Medications Medications: Current Medications Atenolol (Tenormin) 50 mg PO BID [facility] Last Admin: 11/12/17 17:43 Dose: 50 mg Diltiazem HCl (Cardizem) 30 mg PO BID [facility] Last Admin: 11/12/17 17:43 Dose: 30 mg Dorzolamide HCl (Trusopt) 0 ml OU Q12 [facility] Last Admin: 11/12/17 21:12 Dose: 1 drop Enalapril Maleate (Vasotec) 10 mg PO DAILY [facility] Last Admin: 11/12/17 10:33 Dose: 10 mg Enoxaparin Sodium (Lovenox) 40 mg SC DAILY [facility] Last Admin: 11/12/17 10:35 Dose: 40 mg Glipizide (Glucotrol Xl) 5 mg PO BID [facility] (Patient's Own Drops) 1 drop OU TID [facility] Piperacillin Sod/Tazobactam Sod (Zosyn 2.25 Gm Iv Premix) 2.25 gm in 50 mls @ 100 mls/hr IVPB Q8 [facility] Last Admin: 11/13/17 05:20 Dose: 100 mls/hr Daptomycin 450 mg/ Sodium (Chloride) 100 mls @ 100 mls/hr IV Q24H [facility] Stop: 11/16/17 20:01 Last Admin: 11/12/17 21:11 Dose: 100 mls/hr Insulin Aspart (Novolog) 0 unit SC ACHS [facility] PRN Reason: Protocol Last Admin: 11/13/17 08:04 Dose: Not Given Isosorbide Mononitrate (Ismo) 20 mg PO BID [facility] Last Admin: 11/12/17 18:07 Dose: 20 mg Latanoprost (Xalatan Opht) 0 ml OU HS [facility] Last Admin: 11/12/17 21:32 Dose: 2.5 ml Metformin HCl (Glucophage) 500 mg PO BID [facility] Last Admin: 11/12/17 17:43 Dose: 500 mg Pneumococcal Polyvalent Vaccine (Pneumovax 23 Vaccine) 0.5 ml IM .ONCE ONE Stop: 11/16/17 10:01 Sodium Hypochlorite (Dakins Solution 0.25%) 0 ml TOP DAILY [facility] - Labs Labs: 11/10/17 13:45 11/10/17 15:09 PT 11.2 SECONDS (9.7-12.2) 11/10/17 13:45 INR 1.0 11/10/17 13:45 APTT 33 SECONDS (21-34) 11/10/17 13:45 Attending/Attestation - Attestation I have personally seen and examined this patient.: Yes I have fully participated in the care of the patient.: Yes I have reviewed all pertinent clinical information, including history, physical exam and plan: Yes Notes (Text): 11/13/17 08:25 Pt seen at bedside with resident. Explained condition in detail with patient. Informed pt that he has bone infection in left great toe and his options include terminal operator IV abx vs amputation. Pt elects for terminal operator IV abx for now. Discussed case with Dr. Jung and Dr. V. Geronimo. Will set pt up with PICC line and treat with local care and IV abx for now.
--- NOTE | 2017-11-12 13:14 | VASCLAB ---
STUDY DESCRIPTION: HISTORY: L hallux gangrene PRIORS: None. TECHNIQUE: Pulse volume recording waveforms and segmental pressures of bilateral lower extremities at multiple levels were obtained. Ankle Brachial Indices (ABIs) were calculated. Report prepared by PENNY Wells, RVT RIGHT LOWER EXTREMITY: * Brachial artery: Pressure - 133 mmHg. * High thigh: Pressure - 188 mmHg: Ratio - 1.41: PVR waveform - Pulsatile * Low thigh: Pressure - 170 mmHg: Ratio - 1.28 PVR waveform: Pulsatile * Calf: Pressure - 172 mmHg: Ratio - 1.29 PVR waveform: Pulsatile * Posterior tibial Artery: Pressure - 166 mmHg: Ratio - 1.25 PVR waveform: Pulsatile * Dorsalis pedis Artery: Pressure - 165 mmHg: Ratio - 1.24 PVR waveform: Pulsatile * Great toe: Pressure - mmHg: Ratio - PVR waveform: Ankle brachial index (LINDA): 1.25 LEFT LOWER EXTREMITY: * Brachial artery: Pressure - 131 mmHg. * High thigh: Pressure - 187 mmHg: Ratio - 1.41: PVR waveform - Pulsatile * Low thigh: Pressure - 189 mmHg: Ratio - 1.42 PVR waveform: Pulsatile * Calf: Pressure - 168 mmHg: Ratio - 1.26 PVR waveform: Pulsatile * Posterior tibial Artery: Pressure - 165 mmHg: Ratio - 1.24 PVR waveform: Pulsatile * Dorsalis pedis Artery: Pressure - 157 mmHg: Ratio - 1.18 PVR waveform: Pulsatile * Great toe: Pressure - mmHg: Ratio - PVR waveform: Ankle brachial index (LINDA): 1.24 OTHER FINDINGS: Right: Left: IMPRESSION: Right: There was no evidence of hemodynamically significant arterial insufficiency in the right lower extremity. Left: There was no evidence of hemodynamically significant arterial insufficiency in the left lower extremity.
--- NOTE | 2017-11-12 18:13 | CP.PCM.PN ---
Subjective - Date & Time of Evaluation Date of Evaluation: 11/12/17 Time of Evaluation: 12:00 - Subjective Subjective: pt evaluated by Dr. DAMIAN BARNES. TOE HAS OSTEOMYELITIS. AMPUTATION ADVISED, PT WOULD LIKE TO HAVE ANTIBIOTIC THERAPY ONLY. AFEBRILE. Objective - Vital Signs/Intake and Output Vital Signs (last 24 hours): Temp Pulse Resp BP Pulse Ox 98.3 F 66 20 119/67 99 11/12/17 15:15 11/12/17 15:15 11/12/17 15:15 11/12/17 15:15 11/12/17 15:15 Intake and Output: 11/12/17 11/12/17 06:59 18:59 Intake Total 820 450 Balance 820 450 - Medications Medications: Current Medications Atenolol (Tenormin) 50 mg PO BID [facility] Last Admin: 11/12/17 17:43 Dose: 50 mg Brimonidine Tartrate (Alphagan 0.2% Opht) 0 ml OU Q12 [facility] Last Admin: 11/12/17 11:18 Dose: 1 drop Diltiazem HCl (Cardizem) 30 mg PO BID [facility] Last Admin: 11/12/17 17:43 Dose: 30 mg Dorzolamide HCl (Trusopt) 0 ml OU Q12 [facility] Last Admin: 11/12/17 10:36 Dose: 1 drop Enalapril Maleate (Vasotec) 10 mg PO DAILY [facility] Last Admin: 11/12/17 10:33 Dose: 10 mg Enoxaparin Sodium (Lovenox) 40 mg SC DAILY [facility] Last Admin: 11/12/17 10:35 Dose: 40 mg Piperacillin Sod/Tazobactam Sod (Zosyn 2.25 Gm Iv Premix) 2.25 gm in 50 mls @ 100 mls/hr IVPB Q8 [facility] Last Admin: 11/12/17 14:13 Dose: 100 mls/hr Daptomycin 450 mg/ Sodium (Chloride) 100 mls @ 100 mls/hr IV Q24H [facility] Stop: 11/16/17 20:01 Last Admin: 11/11/17 19:44 Dose: 100 mls/hr Insulin Aspart (Novolog) 0 unit SC ACHS [facility] PRN Reason: Protocol Last Admin: 11/12/17 17:01 Dose: Not Given Isosorbide Mononitrate (Ismo) 20 mg PO BID [facility] Last Admin: 11/12/17 18:07 Dose: 20 mg Latanoprost (Xalatan Opht) 0 ml OU HS [facility] Last Admin: 11/11/17 22:02 Dose: 2.5 ml Metformin HCl (Glucophage) 500 mg PO BID [facility] Last Admin: 11/12/17 17:43 Dose: 500 mg Pneumococcal Polyvalent Vaccine (Pneumovax 23 Vaccine) 0.5 ml IM .ONCE ONE Stop: 11/16/17 10:01 Sodium Hypochlorite (Dakins Solution 0.25%) 0 ml TOP DAILY [facility] Timolol Maleate (Timoptic 0.5% Oph Soln) 1 drop OU Q12H [facility] Last Admin: 11/12/17 10:36 Dose: 1 drop - Labs Labs: 11/10/17 13:45 11/10/17 15:09 PT 11.2 SECONDS (9.7-12.2) 11/10/17 13:45 INR 1.0 11/10/17 13:45 APTT 33 SECONDS (21-34) 11/10/17 13:45 - Constitutional Appears: No Acute Distress, Chronically Ill - Eye Exam Eye Exam: PERRL - ENT Exam ENT Exam: Normal Exam - Respiratory Exam Respiratory Exam: Clear to Ausculation Bilateral, NORMAL BREATHING PATTERN - Cardiovascular Exam Cardiovascular Exam: REGULAR RHYTHM, +S1, +S2 - GI/Abdominal Exam GI & Abdominal Exam: Soft - Neurological Exam Neurological Exam: Alert, Awake, CN II-XII Intact, Normal Gait, Oriented x3 Additional comments: LT BIG TOE OM. GANGRENOE PRESENT. Assessment and Plan - Assessment and Plan (Free Text) Assessment: OM LT BIG TOE. DM. HTN. Plan: FOR IV ANTIBIOTICS.
[2017-11-12] MEDS: Latanoprost 2.5 ml Opht Soln OU SCH (21:32)
[2017-11-13] MEDS: Piperacill/Tazo 2.25gm in Dex 2.25 GM/50 ML BAG IVPB SCH ×2 (05:20→14:00)
[2017-11-13] MEDS: (Novolog) Insulin Aspart, Recombinant 100 u/ml 10 ml vial SC SCH ×4 (08:04→23:20)
[2017-11-13] MEDS: Enoxaparin 40 mg Syringe SC SCH (09:36)
[2017-11-13] MEDS: Dakin's Topical 0.25%-Half Strength (480 ml) TOP SCH (09:37)
[2017-11-13] MEDS: GlipiZIDE 5 mg SR Tab PO SCH ×2 (09:37→17:33)
[2017-11-13] MEDS: Dorzolamide 2% Opht Sol 10ml OU SCH (09:40)
[2017-11-13] MEDS ORDERED: Patient's Own Drops OU SCH (10:00)
--- NOTE | 2017-11-13 10:26 | CP.PCM.PN ---
Subjective - Date & Time of Evaluation Date of Evaluation: 11/13/17 Time of Evaluation: 13:02 - Subjective Subjective: Vascular Surgery Note for Dr. Gibbs Patient seen and examined at bedside. No acute event overnight. Patient resting in bed comfortably. He denies pain. He is tolerating diet. Patient has no complaints. Objective - Vital Signs/Intake and Output Vital Signs (last 24 hours): Temp Pulse Resp BP Pulse Ox 98.0 F 78 20 158/69 H 98 11/13/17 08:30 11/13/17 08:30 11/13/17 08:30 11/13/17 09:37 11/13/17 08:30 Intake and Output: 11/13/17 11/13/17 06:59 18:59 Intake Total 350 850 Output Total 500 0 Balance -150 850 - Medications Medications: Current Medications Atenolol (Tenormin) 50 mg PO BID [facility] Last Admin: 11/13/17 09:37 Dose: 50 mg Diltiazem HCl (Cardizem) 30 mg PO BID [facility] Last Admin: 11/13/17 09:37 Dose: 30 mg Dorzolamide HCl (Trusopt) 0 ml OU Q12 [facility] Last Admin: 11/13/17 09:40 Dose: 1 drop Enalapril Maleate (Vasotec) 10 mg PO DAILY [facility] Last Admin: 11/13/17 09:37 Dose: 10 mg Enoxaparin Sodium (Lovenox) 40 mg SC DAILY [facility] Last Admin: 11/13/17 09:36 Dose: 40 mg Glipizide (Glucotrol Xl) 5 mg PO BID [facility] Last Admin: 11/13/17 09:37 Dose: 5 mg Home Med (Patient's Own Drops) 1 drop OU TID [facility] Piperacillin Sod/Tazobactam Sod (Zosyn 2.25 Gm Iv Premix) 2.25 gm in 50 mls @ 100 mls/hr IVPB Q8 [facility] Last Admin: 11/13/17 05:20 Dose: 100 mls/hr Daptomycin 450 mg/ Sodium (Chloride) 100 mls @ 100 mls/hr IV Q24H [facility] Stop: 11/16/17 20:01 Last Admin: 11/12/17 21:11 Dose: 100 mls/hr Insulin Aspart (Novolog) 0 unit SC ACHS [facility] PRN Reason: Protocol Last Admin: 11/13/17 08:04 Dose: Not Given Isosorbide Mononitrate (Ismo) 20 mg PO BID [facility] Last Admin: 11/13/17 09:38 Dose: 20 mg Latanoprost (Xalatan Opht) 0 ml OU HS [facility] Last Admin: 11/12/17 21:32 Dose: 2.5 ml Metformin HCl (Glucophage) 500 mg PO BID [facility] Last Admin: 11/13/17 09:37 Dose: 500 mg Pneumococcal Polyvalent Vaccine (Pneumovax 23 Vaccine) 0.5 ml IM .ONCE ONE Stop: 11/16/17 10:01 Sodium Hypochlorite (Dakins Solution 0.25%) 0 ml TOP DAILY [facility] Last Admin: 11/13/17 09:37 Dose: Not Given - Labs Labs: 11/10/17 13:45 11/10/17 15:09 PT 11.2 SECONDS (9.7-12.2) 11/10/17 13:45 INR 1.0 11/10/17 13:45 APTT 33 SECONDS (21-34) 11/10/17 13:45 - Constitutional Appears: No Acute Distress - Head Exam Head Exam: ATRAUMATIC, NORMOCEPHALIC - Eye Exam Eye Exam: EOMI, Normal appearance Pupil Exam: PERRL - ENT Exam ENT Exam: Mucous Membranes Moist - Respiratory Exam Respiratory Exam: NORMAL BREATHING PATTERN - Cardiovascular Exam Cardiovascular Exam: REGULAR RHYTHM - GI/Abdominal Exam GI & Abdominal Exam: Soft, Normal Bowel Sounds. 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 Please reconsult as needed. Thank you. -Discussed with Dr. Sai Tabares PGY1
--- NOTE | 2017-11-13 12:33 | CP.PCM.PN ---
Subjective - Date & Time of Evaluation Date of Evaluation: 11/13/17 Time of Evaluation: 09:00 - Subjective Subjective: cultures noted possible out pt rx Objective - Vital Signs/Intake and Output Vital Signs (last 24 hours): Temp Pulse Resp BP Pulse Ox 98.0 F 78 20 158/69 H 98 11/13/17 08:30 11/13/17 08:30 11/13/17 08:30 11/13/17 09:37 11/13/17 08:30 Intake and Output: 11/13/17 11/13/17 06:59 18:59 Intake Total 350 850 Output Total 500 0 Balance -150 850 - Medications Medications: Current Medications Atenolol (Tenormin) 50 mg PO BID [facility] Last Admin: 11/13/17 09:37 Dose: 50 mg Diltiazem HCl (Cardizem) 30 mg PO BID [facility] Last Admin: 11/13/17 09:37 Dose: 30 mg Dorzolamide HCl (Trusopt) 0 ml OU Q12 [facility] Last Admin: 11/13/17 09:40 Dose: 1 drop Enalapril Maleate (Vasotec) 10 mg PO DAILY [facility] Last Admin: 11/13/17 09:37 Dose: 10 mg Enoxaparin Sodium (Lovenox) 40 mg SC DAILY [facility] Last Admin: 11/13/17 09:36 Dose: 40 mg Glipizide (Glucotrol Xl) 5 mg PO BID [facility] Last Admin: 11/13/17 09:37 Dose: 5 mg Home Med (Patient's Own Drops) 1 drop OU TID [facility] Piperacillin Sod/Tazobactam Sod (Zosyn 2.25 Gm Iv Premix) 2.25 gm in 50 mls @ 100 mls/hr IVPB Q8 [facility] Last Admin: 11/13/17 05:20 Dose: 100 mls/hr Daptomycin 450 mg/ Sodium (Chloride) 100 mls @ 100 mls/hr IV Q24H [facility] Stop: 11/16/17 20:01 Last Admin: 11/12/17 21:11 Dose: 100 mls/hr Insulin Aspart (Novolog) 0 unit SC ACHS [facility] PRN Reason: Protocol Last Admin: 11/13/17 08:04 Dose: Not Given Isosorbide Mononitrate (Ismo) 20 mg PO BID [facility] Last Admin: 11/13/17 09:38 Dose: 20 mg Latanoprost (Xalatan Opht) 0 ml OU HS [facility] Last Admin: 11/12/17 21:32 Dose: 2.5 ml Metformin HCl (Glucophage) 500 mg PO BID [facility] Last Admin: 11/13/17 09:37 Dose: 500 mg Pneumococcal Polyvalent Vaccine (Pneumovax 23 Vaccine) 0.5 ml IM .ONCE ONE Stop: 11/16/17 10:01 Sodium Hypochlorite (Dakins Solution 0.25%) 0 ml TOP DAILY [facility] Last Admin: 11/13/17 09:37 Dose: Not Given - Labs Labs: 11/10/17 13:45 11/10/17 15:09 PT 11.2 SECONDS (9.7-12.2) 11/10/17 13:45 INR 1.0 11/10/17 13:45 APTT 33 SECONDS (21-34) 11/10/17 13:45
--- NOTE | 2017-11-13 12:51 | CP.PCM.PN ---
Subjective - Date & Time of Evaluation Date of Evaluation: 11/13/17 Time of Evaluation: 12:48 - Subjective Subjective: LT TOE OM. AFEBRILE. VASCULAR EVAL NOTED. DISCUSSED WITH DR. JEFFERY , ANTIBIOTICS CHANGED . BS OK. Objective - Vital Signs/Intake and Output Vital Signs (last 24 hours): Temp Pulse Resp BP Pulse Ox 98.0 F 78 20 158/69 H 98 11/13/17 08:30 11/13/17 08:30 11/13/17 08:30 11/13/17 09:37 11/13/17 08:30 Intake and Output: 11/13/17 11/13/17 06:59 18:59 Intake Total 350 850 Output Total 500 0 Balance -150 850 - Medications Medications: Current Medications Atenolol (Tenormin) 50 mg PO BID [facility] Last Admin: 11/13/17 09:37 Dose: 50 mg Diltiazem HCl (Cardizem) 30 mg PO BID [facility] Last Admin: 11/13/17 09:37 Dose: 30 mg Dorzolamide HCl (Trusopt) 0 ml OU Q12 [facility] Last Admin: 11/13/17 09:40 Dose: 1 drop Enalapril Maleate (Vasotec) 10 mg PO DAILY [facility] Last Admin: 11/13/17 09:37 Dose: 10 mg Enoxaparin Sodium (Lovenox) 40 mg SC DAILY [facility] Last Admin: 11/13/17 09:36 Dose: 40 mg Glipizide (Glucotrol Xl) 5 mg PO BID [facility] Last Admin: 11/13/17 09:37 Dose: 5 mg Home Med (Patient's Own Drops) 1 drop OU TID [facility] Piperacillin Sod/Tazobactam Sod (Zosyn 2.25 Gm Iv Premix) 2.25 gm in 50 mls @ 100 mls/hr IVPB Q8 [facility] Last Admin: 11/13/17 05:20 Dose: 100 mls/hr Daptomycin 450 mg/ Sodium (Chloride) 100 mls @ 100 mls/hr IV Q24H [facility] Stop: 11/16/17 20:01 Last Admin: 11/12/17 21:11 Dose: 100 mls/hr Insulin Aspart (Novolog) 0 unit SC ACHS [facility] PRN Reason: Protocol Last Admin: 11/13/17 08:04 Dose: Not Given Isosorbide Mononitrate (Ismo) 20 mg PO BID [facility] Last Admin: 11/13/17 09:38 Dose: 20 mg Latanoprost (Xalatan Opht) 0 ml OU HS [facility] Last Admin: 11/12/17 21:32 Dose: 2.5 ml Metformin HCl (Glucophage) 500 mg PO BID [facility] Last Admin: 11/13/17 09:37 Dose: 500 mg Pneumococcal Polyvalent Vaccine (Pneumovax 23 Vaccine) 0.5 ml IM .ONCE ONE Stop: 11/16/17 10:01 Sodium Hypochlorite (Dakins Solution 0.25%) 0 ml TOP DAILY [facility] Last Admin: 11/13/17 09:37 Dose: Not Given - Labs Labs: 11/10/17 13:45 11/10/17 15:09 PT 11.2 SECONDS (9.7-12.2) 11/10/17 13:45 INR 1.0 11/10/17 13:45 APTT 33 SECONDS (21-34) 11/10/17 13:45 - Constitutional Appears: No Acute Distress, Chronically Ill - Eye Exam Eye Exam: PERRL - ENT Exam ENT Exam: Mucous Membranes Moist - Respiratory Exam Respiratory Exam: Clear to Ausculation Bilateral, NORMAL BREATHING PATTERN - Cardiovascular Exam Cardiovascular Exam: REGULAR RHYTHM, +S1, +S2 - GI/Abdominal Exam GI & Abdominal Exam: Soft, Normal Bowel Sounds - Extremities Exam Additional comments: LT BIG TOE OM. DIABETIC ULCER. - Back Exam Back Exam: NORMAL INSPECTION - Neurological Exam Neurological Exam: Alert, Awake, CN II-XII Intact, Normal Gait, Oriented x3 Assessment and Plan - Assessment and Plan (Free Text) Assessment: OM LT FOOT. DIABETIC ULCER. DM. Plan: CT PRESENT TREATMENT.
--- NOTE | 2017-11-13 13:56 | CP.PCM.PN ---
<MeyerMaryuriChantal - Last Filed: 11/13/17 13:52> Subjective - Date & Time of Evaluation Date of Evaluation: 11/13/17 Time of Evaluation: 11:52 - Subjective Subjective: Podiatry note for Dr. Oh Ruiz 67 year old male patient was seen at bedside this afternoon concerning Open ulcer to Left hallux. Patient was resting comfortably in bed with No overnight acute distress. AAOx3. Patient denies of any pain to the Left hallux today. Patient was explained of podiatry plan of treatment with IV Abx for 6 weeks. Patient was explained of possible outcomes of IV abx treatment including further advancement of bone infection. Patient denies of any N/V/F/C associated with the ulceration. Patient denies of any other pedal complains. Patient denies of any N/V/F/C or SOB today Objective - Vital Signs/Intake and Output Vital Signs (last 24 hours): Temp Pulse Resp BP Pulse Ox 98.0 F 78 20 158/69 H 98 11/13/17 08:30 11/13/17 08:30 11/13/17 08:30 11/13/17 09:37 11/13/17 08:30 Intake and Output: 11/13/17 11/13/17 06:59 18:59 Intake Total 350 850 Output Total 500 0 Balance -150 850 - Medications Medications: Current Medications Atenolol (Tenormin) 50 mg PO BID [facility] Last Admin: 11/13/17 09:37 Dose: 50 mg Diltiazem HCl (Cardizem) 30 mg PO BID [facility] Last Admin: 11/13/17 09:37 Dose: 30 mg Dorzolamide HCl (Trusopt) 0 ml OU Q12 [facility] Last Admin: 11/13/17 09:40 Dose: 1 drop Enalapril Maleate (Vasotec) 10 mg PO DAILY [facility] Last Admin: 11/13/17 09:37 Dose: 10 mg Enoxaparin Sodium (Lovenox) 40 mg SC DAILY [facility] Last Admin: 11/13/17 09:36 Dose: 40 mg Glipizide (Glucotrol Xl) 5 mg PO BID [facility] Last Admin: 11/13/17 09:37 Dose: 5 mg Home Med (Patient's Own Drops) 1 drop OU TID [facility] Piperacillin Sod/Tazobactam Sod (Zosyn 2.25 Gm Iv Premix) 2.25 gm in 50 mls @ 100 mls/hr IVPB Q8 [facility] Last Admin: 11/13/17 05:20 Dose: 100 mls/hr Daptomycin 450 mg/ Sodium (Chloride) 100 mls @ 100 mls/hr IV Q24H [facility] Stop: 11/16/17 20:01 Last Admin: 11/12/17 21:11 Dose: 100 mls/hr Insulin Aspart (Novolog) 0 unit SC ACHS [facility] PRN Reason: Protocol Last Admin: 11/13/17 11:46 Dose: Not Given Isosorbide Mononitrate (Ismo) 20 mg PO BID [facility] Last Admin: 11/13/17 09:38 Dose: 20 mg Latanoprost (Xalatan Opht) 0 ml OU HS [facility] Last Admin: 11/12/17 21:32 Dose: 2.5 ml Metformin HCl (Glucophage) 500 mg PO BID [facility] Last Admin: 11/13/17 09:37 Dose: 500 mg Pneumococcal Polyvalent Vaccine (Pneumovax 23 Vaccine) 0.5 ml IM .ONCE ONE Stop: 11/16/17 10:01 Sodium Hypochlorite (Dakins Solution 0.25%) 0 ml TOP DAILY [facility] Last Admin: 11/13/17 09:37 Dose: Not Given - Labs Labs: 11/10/17 13:45 11/10/17 15:09 PT 11.2 SECONDS (9.7-12.2) 11/10/17 13:45 INR 1.0 11/10/17 13:45 APTT 33 SECONDS (21-34) 11/10/17 13:45 - Constitutional Appears: Well, Non-toxic, No Acute Distress - Head Exam Head Exam: ATRAUMATIC - Extremities Exam Additional comments: Lower extremity exam DERM: Chronic ulcerations with exposed bone to Left foot. No acute infection is noted. Right: Unremarkable. Left: - Open ulceration noted to distal aspect of Left hallux measuring 4cm x 3cm x 1cm with fibrotic base. Purulent drainage is noted. Malodor present. Probes to bone. Erythema noted around the ulceration <2cm marginal thickness. VASC: Right: Palpable DP and PT noted bilaterally. HYDRAULIC JACK MECHANIC less than 3 seconds noted to all remaining digits LEFT: NON-palpable DP and PT noted bilaterally. HYDRAULIC JACK MECHANIC less than 3 seconds noted to all remaining digits ORTHO: Decreased ROM to bilateral lower extremities to joints distal to ankle. NEURO: Gross sensation diminished. - Neurological Exam Neurological Exam: Alert, Awake, Oriented x3 - Psychiatric Exam Psychiatric exam: Normal Affect, Normal Mood - Skin Skin Exam: Normal Color, Warm Assessment and Plan - Assessment and Plan (Free Text) Assessment: 67 yo male patient presents with open ulceration to Left hallux Plan: Patient was seen, evaluated with attending Dr. Ruiz this AM labs and vitals reviewed; afebrile Xray for bilateral feet reveals signs consistent with osteomyelitis to Left hallux involving distal phalanx MRI - reveals signs consistent with osteomyelitis to Left hallux involving distal phalanx Left foot was dressed with Betadine DSD. Dakin soln 0.25% ordered PICC line ordered - not in place as of 11/13 Vascular note appreciated. Podiatry will continue to follow inhouse <Oh Ruiz - Last Filed: 11/16/17 10:07> Objective - Vital Signs/Intake and Output Vital Signs (last 24 hours): Temp Pulse Resp BP Pulse Ox 97.6 F 68 20 142/79 100 11/16/17 08:33 11/16/17 08:33 11/16/17 08:33 11/16/17 08:33 11/16/17 08:33 Intake and Output: 11/16/17 11/16/17 06:59 18:59 Intake Total 600 600 Balance 600 600 - Medications Medications: Current Medications Atenolol (Tenormin) 50 mg PO BID [facility] Last Admin: 11/15/17 18:35 Dose: 50 mg Brimonidine Tartrate (Alphagan 0.2% Opht) 0 ml OU TID [facility] Diltiazem HCl (Cardizem) 30 mg PO BID [facility] Last Admin: 11/15/17 18:35 Dose: 30 mg Dorzolamide HCl (Trusopt) 0 ml OU Q12 [facility] Last Admin: 11/15/17 22:14 Dose: 1 drop Enalapril Maleate (Vasotec) 10 mg PO DAILY [facility] Last Admin: 11/15/17 09:40 Dose: 10 mg Enoxaparin Sodium (Lovenox) 40 mg SC DAILY [facility] Last Admin: 11/15/17 09:41 Dose: 40 mg Gabapentin (Neurontin) 300 mg PO BID [facility] Last Admin: 11/15/17 18:35 Dose: 300 mg Glipizide (Glucotrol Xl) 5 mg PO BID [facility] Last Admin: 11/15/17 18:35 Dose: 5 mg Daptomycin 450 mg/ Sodium (Chloride) 100 mls @ 100 mls/hr IV Q24H [facility] Stop: 11/16/17 20:01 Last Admin: 11/15/17 19:41 Dose: 100 mls/hr Ertapenem 1 gm/ Sodium (Chloride) 100 mls @ 100 mls/hr IV DAILY [facility] Last Admin: 11/14/17 11:02 Dose: Not Given Meropenem 1 gm/ Sodium (Chloride) 100 mls @ 200 mls/hr IVPB Q8H [facility] Last Admin: 11/16/17 03:30 Dose: 200 mls/hr Insulin Aspart (Novolog) 0 unit SC ACHS [facility] PRN Reason: Protocol Last Admin: 11/16/17 08:06 Dose: Not Given Isosorbide Mononitrate (Ismo) 20 mg PO BID [facility] Last Admin: 11/15/17 18:37 Dose: 20 mg Latanoprost (Xalatan Opht) 0 ml OU HS [facility] Last Admin: 11/15/17 22:15 Dose: 2.5 ml Metformin HCl (Glucophage) 500 mg PO BID [facility] Last Admin: 11/15/17 18:35 Dose: 500 mg Sodium Hypochlorite (Dakins Solution 0.25%) 0 ml TOP DAILY [facility] Last Admin: 11/15/17 09:41 Dose: 1 applic Timolol Maleate (Timoptic 0.5% Ophth Soln) 0 drop OU BID [facility] - Labs Labs: 11/10/17 13:45 11/10/17 15:09 PT 11.2 SECONDS (9.7-12.2) 11/10/17 13:45 INR 1.0 11/10/17 13:45 APTT 33 SECONDS (21-34) 11/10/17 13:45 Attending/Attestation - Attestation I have personally seen and examined this patient.: Yes I have fully participated in the care of the patient.: Yes I have reviewed all pertinent clinical information, including history, physical exam and plan: Yes Notes (Text): 11/16/17 10:07 Pt does not want surgery at present. Pt to get PICC line and get treated with local wound care and IV abx.
--- NOTE | 2017-11-13 14:06 | PCM.SURG1 ---
Surgeon's Initial Post Op Note - Surgeon's Notes Surgeon: Kirk Huntley MD Ladle Mechanic: None Type of Anesthesia: Local Pre-Operative Diagnosis: Infection requiring senior living IV antibiotics Operative Findings: patent right basilic vein. catheter length: 41 cm. catheter tip: cavoatrial junction Post-Operative Diagnosis: same Operation Performed: RUE PICC insertion Specimen/Specimens Removed: n/a Estimated Blood Loss: EBL {In ML}: 0 Date of Surgery/Procedure: 11/13/17 Time of Surgery/Procedure: 14:06
--- NOTE | 2017-11-13 15:26 | CP.PCM.PN ---
Subjective - Date & Time of Evaluation Date of Evaluation: 11/13/17 Time of Evaluation: 15:23 - Subjective Subjective: PT SEEN WITH DR. Isis OBREGON THIS MORNING DURING ROUNDS. PER DR. OBREGON HE DISCUSSED WITH SURGERY AND THERE IS NO SURGICAL INTERVENTION PLANNED FOR THIS TIME. I DISCUSSED PLAN WITH PODIATRY RESIDENT AND TO CONTINUE LOCAL WOUND CARE FOR NOW DAILY; PT TO FOLLOW UP WITH DR. BARNES IN THE OFFICE ONCE A WEEK STARTING NEXT WEEK. PICC LINE TO BE INSERTED TODAY FOR IV ABX PER DR. JEFFERY. I DISCUSSED ABX DURATION WITH DR. JEFFERY. HE IS AWARE THAT PT PREFERS TO GO TO THE OUTPATIENT INF[facility]ION CENTER ONCE DAY FOR HIS ABX. BASED ON THIS AND THE CX HE RECOMMENDS DAPTO 450MG IV DAILY AND INVANZ 1 GM IV DAILY X6 WEEKS (START ON AND LAST DOSE TO BE GIVEN ON 12/26/17). HE WILL ALSO HAVE LABS DONE Q WEEK PER ID RECS: CBC, CMP, CPK, CRP. PT UNABLE TO START INFUSION CENTER OVER WEEKEND. WILL KEEP PT UNTIL THURSDAY TO ENSURE HE DOES NOT REACT TO THE INVANZ AND WILL ARRANGE FOR INFUSION CENTER MEDS AND BLOOD WORK ON THURSDAY. DR. Isis OBREGON AWARE OF PLAN. PT AWARE OF PLAN. Objective - Vital Signs/Intake and Output Vital Signs (last 24 hours): Temp Pulse Resp BP Pulse Ox 98.0 F 78 20 158/69 H 98 11/13/17 08:30 11/13/17 08:30 11/13/17 08:30 11/13/17 09:37 11/13/17 08:30 Intake and Output: 11/13/17 11/13/17 06:59 18:59 Intake Total 350 1540 Output Total 500 0 Balance -150 1540 - Medications Medications: Current Medications Atenolol (Tenormin) 50 mg PO BID [facility] Last Admin: 11/13/17 09:37 Dose: 50 mg Diltiazem HCl (Cardizem) 30 mg PO BID [facility] Last Admin: 11/13/17 09:37 Dose: 30 mg Dorzolamide HCl (Trusopt) 0 ml OU Q12 [facility] Last Admin: 11/13/17 09:40 Dose: 1 drop Enalapril Maleate (Vasotec) 10 mg PO DAILY [facility] Last Admin: 11/13/17 09:37 Dose: 10 mg Enoxaparin Sodium (Lovenox) 40 mg SC DAILY [facility] Last Admin: 11/13/17 09:36 Dose: 40 mg Glipizide (Glucotrol Xl) 5 mg PO BID [facility] Last Admin: 11/13/17 09:37 Dose: 5 mg Home Med (Patient's Own Drops) 1 drop OU TID [facility] Piperacillin Sod/Tazobactam Sod (Zosyn 2.25 Gm Iv Premix) 2.25 gm in 50 mls @ 100 mls/hr IVPB Q8 [facility] Last Admin: 11/13/17 14:00 Dose: 100 mls/hr Daptomycin 450 mg/ Sodium (Chloride) 100 mls @ 100 mls/hr IV Q24H [facility] Stop: 11/16/17 20:01 Last Admin: 11/12/17 21:11 Dose: 100 mls/hr Insulin Aspart (Novolog) 0 unit SC ACHS [facility] PRN Reason: Protocol Last Admin: 11/13/17 11:46 Dose: Not Given Isosorbide Mononitrate (Ismo) 20 mg PO BID [facility] Last Admin: 11/13/17 09:38 Dose: 20 mg Latanoprost (Xalatan Opht) 0 ml OU HS [facility] Last Admin: 11/12/17 21:32 Dose: 2.5 ml Metformin HCl (Glucophage) 500 mg PO BID [facility] Last Admin: 11/13/17 09:37 Dose: 500 mg Pneumococcal Polyvalent Vaccine (Pneumovax 23 Vaccine) 0.5 ml IM .ONCE ONE Stop: 11/16/17 10:01 Sodium Hypochlorite (Dakins Solution 0.25%) 0 ml TOP DAILY [facility] Last Admin: 11/13/17 09:37 Dose: Not Given - Labs Labs: 11/10/17 13:45 11/10/17 15:09 PT 11.2 SECONDS (9.7-12.2) 11/10/17 13:45 INR 1.0 11/10/17 13:45 APTT 33 SECONDS (21-34) 11/10/17 13:45
--- NOTE | 2017-11-13 18:18 | CP.PCM.PN ---
Subjective - Date & Time of Evaluation Date of Evaluation: 11/13/17 Time of Evaluation: 09:00 - Subjective Subjective: wound + proteus iv rx in progress Objective - Vital Signs/Intake and Output Vital Signs (last 24 hours): Temp Pulse Resp BP Pulse Ox 97.8 F 78 20 152/87 H 98 11/13/17 15:00 11/13/17 15:38 11/13/17 15:00 11/13/17 15:00 11/13/17 15:00 Intake and Output: 11/13/17 11/13/17 06:59 18:59 Intake Total 350 1540 Output Total 500 0 Balance -150 1540 - Medications Medications: Current Medications Atenolol (Tenormin) 50 mg PO BID [facility] Last Admin: 11/13/17 17:32 Dose: 50 mg Diltiazem HCl (Cardizem) 30 mg PO BID [facility] Last Admin: 11/13/17 17:32 Dose: 30 mg Dorzolamide HCl (Trusopt) 0 ml OU Q12 [facility] Last Admin: 11/13/17 09:40 Dose: 1 drop Enalapril Maleate (Vasotec) 10 mg PO DAILY [facility] Last Admin: 11/13/17 09:37 Dose: 10 mg Enoxaparin Sodium (Lovenox) 40 mg SC DAILY [facility] Last Admin: 11/13/17 09:36 Dose: 40 mg Gabapentin (Neurontin) 300 mg PO BID [facility] Glipizide (Glucotrol Xl) 5 mg PO BID [facility] Last Admin: 11/13/17 17:33 Dose: 5 mg Home Med (Patient's Own Drops) 1 drop OU TID [facility] Daptomycin 450 mg/ Sodium (Chloride) 100 mls @ 100 mls/hr IV Q24H [facility] Stop: 11/16/17 20:01 Last Admin: 11/12/17 21:11 Dose: 100 mls/hr Ertapenem 1 gm/ Sodium (Chloride) 100 mls @ 100 mls/hr IV DAILY [facility] Insulin Aspart (Novolog) 0 unit SC ACHS [facility] PRN Reason: Protocol Last Admin: 11/13/17 17:33 Dose: Not Given Isosorbide Mononitrate (Ismo) 20 mg PO BID [facility] Last Admin: 11/13/17 17:33 Dose: 20 mg Latanoprost (Xalatan Opht) 0 ml OU HS [facility] Last Admin: 11/12/17 21:32 Dose: 2.5 ml Metformin HCl (Glucophage) 500 mg PO BID [facility] Last Admin: 11/13/17 17:32 Dose: 500 mg Pneumococcal Polyvalent Vaccine (Pneumovax 23 Vaccine) 0.5 ml IM .ONCE ONE Stop: 11/16/17 10:01 Sodium Hypochlorite (Dakins Solution 0.25%) 0 ml TOP DAILY [facility] Last Admin: 11/13/17 09:37 Dose: Not Given - Labs Labs: 11/10/17 13:45 11/10/17 15:09 PT 11.2 SECONDS (9.7-12.2) 11/10/17 13:45 INR 1.0 11/10/17 13:45 APTT 33 SECONDS (21-34) 11/10/17 13:45 - Constitutional Appears: Non-toxic, Chronically Ill - Head Exam Head Exam: NORMOCEPHALIC - Eye Exam Eye Exam: PERRL - ENT Exam ENT Exam: Mucous Membranes Dry - Neck Exam Neck Exam: absent: Lymphadenopathy - Respiratory Exam Respiratory Exam: Decreased Breath Sounds - Cardiovascular Exam Cardiovascular Exam: REGULAR RHYTHM - GI/Abdominal Exam GI & Abdominal Exam: Distended - Rectal Exam Rectal Exam: Deferred Assessment and Plan (1) Acute osteomyelitis of toe of left foot Status: Acute - Assessment and Plan (Free Text) Plan: cont iv rx for 6 weeks
[2017-11-13] MEDS: Latanoprost 2.5 ml Opht Soln OU SCH (21:37)
[2017-11-14] MEDS: (Novolog) Insulin Aspart, Recombinant 100 u/ml 10 ml vial SC SCH ×4 (08:00→22:05)
[2017-11-14] MEDS: Dakin's Topical 0.25%-Half Strength (480 ml) TOP SCH (09:18)
[2017-11-14] MEDS: GlipiZIDE 5 mg SR Tab PO SCH ×2 (09:20→18:22)
[2017-11-14] MEDS: Enoxaparin 40 mg Syringe SC SCH (09:20)
[2017-11-14] MEDS ORDERED: Ertapenem 1gm in NS 50ml 1 GM in Sodium Chloride 0.9% 50 ML IV SCH ×2 (10:00)
[2017-11-14] MEDS ORDERED: Meropenem 1 GM in Sodium Chloride 0.9% 100 ML IVPB SCH (11:00)
--- NOTE | 2017-11-14 11:11 | CP.PCM.PN ---
Subjective - Date & Time of Evaluation Date of Evaluation: 11/14/17 Time of Evaluation: 11:09 - Subjective Subjective: CONDITION SAME. Objective - Vital Signs/Intake and Output Vital Signs (last 24 hours): Temp Pulse Resp BP Pulse Ox 98.0 F 64 20 159/82 H 95 11/14/17 09:07 11/14/17 09:07 11/14/17 09:07 11/14/17 09:20 11/14/17 09:07 Intake and Output: 11/14/17 11/14/17 06:59 18:59 Intake Total 690 Balance 690 - Medications Medications: Current Medications Atenolol (Tenormin) 50 mg PO BID [facility] Last Admin: 11/14/17 09:20 Dose: 50 mg Diltiazem HCl (Cardizem) 30 mg PO BID [facility] Last Admin: 11/14/17 09:20 Dose: 30 mg Dorzolamide HCl (Trusopt) 0 ml OU Q12 [facility] Last Admin: 11/13/17 09:40 Dose: 1 drop Enalapril Maleate (Vasotec) 10 mg PO DAILY [facility] Last Admin: 11/14/17 09:20 Dose: 10 mg Enoxaparin Sodium (Lovenox) 40 mg SC DAILY [facility] Last Admin: 11/14/17 09:20 Dose: 40 mg Gabapentin (Neurontin) 300 mg PO BID [facility] Last Admin: 11/14/17 09:20 Dose: 300 mg Glipizide (Glucotrol Xl) 5 mg PO BID [facility] Last Admin: 11/14/17 09:20 Dose: 5 mg Home Med (Patient's Own Drops) 1 drop OU TID [facility] Daptomycin 450 mg/ Sodium (Chloride) 100 mls @ 100 mls/hr IV Q24H [facility] Stop: 11/16/17 20:01 Last Admin: 11/13/17 20:22 Dose: 100 mls/hr Ertapenem 1 gm/ Sodium (Chloride) 100 mls @ 100 mls/hr IV DAILY [facility] Last Admin: 11/14/17 11:02 Dose: Not Given Meropenem (Merrem Iv 1 Gm Premix) 50 mls @ 200 mls/hr IVPB Q8H [facility] Insulin Aspart (Novolog) 0 unit SC ACHS [facility] PRN Reason: Protocol Last Admin: 11/14/17 08:00 Dose: Not Given Isosorbide Mononitrate (Ismo) 20 mg PO BID [facility] Last Admin: 11/14/17 09:22 Dose: 20 mg Latanoprost (Xalatan Opht) 0 ml OU HS [facility] Last Admin: 11/13/17 21:37 Dose: 2.5 ml Metformin HCl (Glucophage) 500 mg PO BID [facility] Last Admin: 11/14/17 09:19 Dose: 500 mg Pneumococcal Polyvalent Vaccine (Pneumovax 23 Vaccine) 0.5 ml IM .ONCE ONE Stop: 11/16/17 10:01 Sodium Hypochlorite (Dakins Solution 0.25%) 0 ml TOP DAILY [facility] Last Admin: 11/14/17 09:18 Dose: 1 applic - Labs Labs: 11/10/17 13:45 11/10/17 15:09 PT 11.2 SECONDS (9.7-12.2) 11/10/17 13:45 INR 1.0 11/10/17 13:45 APTT 33 SECONDS (21-34) 11/10/17 13:45 - Constitutional Appears: No Acute Distress, Chronically Ill - Eye Exam Eye Exam: PERRL - ENT Exam ENT Exam: Normal Exam - Respiratory Exam Respiratory Exam: Clear to Ausculation Bilateral, NORMAL BREATHING PATTERN - Cardiovascular Exam Cardiovascular Exam: REGULAR RHYTHM, +S1, +S2 - GI/Abdominal Exam GI & Abdominal Exam: Soft, Normal Bowel Sounds - Back Exam Back Exam: NORMAL INSPECTION Assessment and Plan - Assessment and Plan (Free Text) Assessment: OM FOOT LT. DM. Plan: CT PRESENT ANTIBIOTICS. WAITING FOR OUT PT ARRANGEMENTS (IV).
[2017-11-14] MEDS: Meropenem IV 1 gm in NS 50 ML IVPB SCH ×2 (11:12→19:30)
[2017-11-14] MEDS: Dorzolamide 2% Opht Sol 10ml OU SCH ×2 (11:19→21:32)
--- NOTE | 2017-11-14 13:19 | CP.PCM.PN ---
<Joyce Gurrola - Last Filed: 11/14/17 16:24> Subjective - Date & Time of Evaluation Date of Evaluation: 11/14/17 Time of Evaluation: 13:19 - Subjective Subjective: Podiatry note for Dr. Oh Ruiz 67 year old male patient was seen at bedside this afternoon for left hallux ulcer. Patient resting comfortably in bed at time of visit, eating lunch. Pt is in NAD and AAOx3. Patient states he has some mild pain in the left big toe. Patient was explained of podiatry plan of treatment with IV Abx for 6 weeks and is on board. Pt say she has had his PICC line placed and is anticipating discharge on Thursday. Patient denies any N/V/F/C associated with the ulceration. Patient denies any other pedal complaints. Objective - Vital Signs/Intake and Output Vital Signs (last 24 hours): Temp Pulse Resp BP Pulse Ox 98.0 F 64 20 159/82 H 95 11/14/17 09:07 11/14/17 09:07 11/14/17 09:07 11/14/17 09:20 11/14/17 09:07 Intake and Output: 11/14/17 11/14/17 06:59 18:59 Intake Total 690 Balance 690 - Medications Medications: Current Medications Atenolol (Tenormin) 50 mg PO BID [facility] Last Admin: 11/14/17 09:20 Dose: 50 mg Diltiazem HCl (Cardizem) 30 mg PO BID [facility] Last Admin: 11/14/17 09:20 Dose: 30 mg Dorzolamide HCl (Trusopt) 0 ml OU Q12 [facility] Last Admin: 11/14/17 11:19 Dose: 1 drop Enalapril Maleate (Vasotec) 10 mg PO DAILY [facility] Last Admin: 11/14/17 09:20 Dose: 10 mg Enoxaparin Sodium (Lovenox) 40 mg SC DAILY [facility] Last Admin: 11/14/17 09:20 Dose: 40 mg Gabapentin (Neurontin) 300 mg PO BID [facility] Last Admin: 11/14/17 09:20 Dose: 300 mg Glipizide (Glucotrol Xl) 5 mg PO BID [facility] Last Admin: 11/14/17 09:20 Dose: 5 mg Home Med (Patient's Own Drops) 1 drop OU TID [facility] Daptomycin 450 mg/ Sodium (Chloride) 100 mls @ 100 mls/hr IV Q24H [facility] Stop: 11/16/17 20:01 Last Admin: 11/13/17 20:22 Dose: 100 mls/hr Ertapenem 1 gm/ Sodium (Chloride) 100 mls @ 100 mls/hr IV DAILY [facility] Last Admin: 11/14/17 11:02 Dose: Not Given Meropenem (Merrem Iv 1 Gm Premix) 50 mls @ 200 mls/hr IVPB Q8H [facility] Last Admin: 11/14/17 11:12 Dose: 200 mls/hr Insulin Aspart (Novolog) 0 unit SC ACHS [facility] PRN Reason: Protocol Last Admin: 11/14/17 12:01 Dose: Not Given Isosorbide Mononitrate (Ismo) 20 mg PO BID [facility] Last Admin: 11/14/17 09:22 Dose: 20 mg Latanoprost (Xalatan Opht) 0 ml OU HS [facility] Last Admin: 11/13/17 21:37 Dose: 2.5 ml Metformin HCl (Glucophage) 500 mg PO BID [facility] Last Admin: 11/14/17 09:19 Dose: 500 mg Pneumococcal Polyvalent Vaccine (Pneumovax 23 Vaccine) 0.5 ml IM .ONCE ONE Stop: 11/16/17 10:01 Sodium Hypochlorite (Dakins Solution 0.25%) 0 ml TOP DAILY [facility] Last Admin: 11/14/17 09:18 Dose: 1 applic - Labs Labs: 11/10/17 13:45 11/10/17 15:09 PT 11.2 SECONDS (9.7-12.2) 11/10/17 13:45 INR 1.0 11/10/17 13:45 APTT 33 SECONDS (21-34) 11/10/17 13:45 - Constitutional Appears: Well, Non-toxic, No Acute Distress - Extremities Exam Additional comments: Left lower extremity exam: Vasc: DP/PT pulses palpable 1/4. CFT <3 seconds noted to all remaining digits Derm: Open ulceration noted to distal aspect of hallux measuring 4cm x 3cm x 1cm with fibrotic base. Minor purulent drainage is noted upon application of pressure to wound. Mild malodor present. Ulceration is positive for probe to bone assessment. Erythema noted around the ulceration <2cm marginal thickness. Ortho: Decreased ROM to bilateral lower extremities to joints distal to ankle. Neuro: Protective sensation grossly diminished - Neurological Exam Neurological Exam: Alert, Awake, Oriented x3 - Psychiatric Exam Psychiatric exam: Normal Affect, Normal Mood Assessment and Plan - Assessment and Plan (Free Text) Assessment: 67 y/o diabetic male with left hallux osteomyelitis secondary to diabetes mellitus with open ulcer Plan: Patient was seen and evaluated at bedside Discussed plan with attending Dr. Ruiz labs and vitals reviewed; afebrile, NNL Xray of left foot reveals signs consistent with osteomyelitis to left hallux distal phalanx MRI - reveals signs consistent with osteomyelitis to left hallux involving distal phalanx Left foot cleansed with Daikin's solution and dressed with Betadine DSD PICC line in place Vascular note appreciated Podiatry will continue to follow patient while in house <Oh Ruiz - Last Filed: 11/16/17 10:10> Objective - Vital Signs/Intake and Output Vital Signs (last 24 hours): Temp Pulse Resp BP Pulse Ox 97.6 F 68 20 142/79 100 11/16/17 08:33 11/16/17 08:33 11/16/17 08:33 11/16/17 08:33 11/16/17 08:33 Intake and Output: 11/16/17 11/16/17 06:59 18:59 Intake Total 600 600 Balance 600 600 - Medications Medications: Current Medications Atenolol (Tenormin) 50 mg PO BID [facility] Last Admin: 11/15/17 18:35 Dose: 50 mg Brimonidine Tartrate (Alphagan 0.2% Opht) 0 ml OU TID [facility] Diltiazem HCl (Cardizem) 30 mg PO BID [facility] Last Admin: 11/15/17 18:35 Dose: 30 mg Dorzolamide HCl (Trusopt) 0 ml OU Q12 [facility] Last Admin: 11/15/17 22:14 Dose: 1 drop Enalapril Maleate (Vasotec) 10 mg PO DAILY [facility] Last Admin: 11/15/17 09:40 Dose: 10 mg Enoxaparin Sodium (Lovenox) 40 mg SC DAILY [facility] Last Admin: 11/15/17 09:41 Dose: 40 mg Gabapentin (Neurontin) 300 mg PO BID [facility] Last Admin: 11/15/17 18:35 Dose: 300 mg Glipizide (Glucotrol Xl) 5 mg PO BID [facility] Last Admin: 11/15/17 18:35 Dose: 5 mg Daptomycin 450 mg/ Sodium (Chloride) 100 mls @ 100 mls/hr IV Q24H [facility] Stop: 11/16/17 20:01 Last Admin: 11/15/17 19:41 Dose: 100 mls/hr Ertapenem 1 gm/ Sodium (Chloride) 100 mls @ 100 mls/hr IV DAILY [facility] Last Admin: 11/14/17 11:02 Dose: Not Given Meropenem 1 gm/ Sodium (Chloride) 100 mls @ 200 mls/hr IVPB Q8H [facility] Last Admin: 11/16/17 03:30 Dose: 200 mls/hr Insulin Aspart (Novolog) 0 unit SC ACHS [facility] PRN Reason: Protocol Last Admin: 11/16/17 08:06 Dose: Not Given Isosorbide Mononitrate (Ismo) 20 mg PO BID [facility] Last Admin: 11/15/17 18:37 Dose: 20 mg Latanoprost (Xalatan Opht) 0 ml OU HS [facility] Last Admin: 11/15/17 22:15 Dose: 2.5 ml Metformin HCl (Glucophage) 500 mg PO BID [facility] Last Admin: 11/15/17 18:35 Dose: 500 mg Sodium Hypochlorite (Dakins Solution 0.25%) 0 ml TOP DAILY [facility] Last Admin: 11/15/17 09:41 Dose: 1 applic Timolol Maleate (Timoptic 0.5% Ophth Soln) 0 drop OU BID [facility] - Labs Labs: 11/10/17 13:45 11/10/17 15:09 PT 11.2 SECONDS (9.7-12.2) 11/10/17 13:45 INR 1.0 11/10/17 13:45 APTT 33 SECONDS (21-34) 11/10/17 13:45 Attending/Attestation - Attestation I have fully participated in the care of the patient.: Yes I have reviewed all pertinent clinical information, including history, physical exam and plan: Yes
[2017-11-14] MEDS: Latanoprost 2.5 ml Opht Soln OU SCH (21:33)
[2017-11-15] MEDS: Meropenem IV 1 gm in NS 50 ML IVPB SCH ×3 (03:18→18:39)
[2017-11-15] MEDS: (Novolog) Insulin Aspart, Recombinant 100 u/ml 10 ml vial SC SCH ×4 (07:52→22:14)
[2017-11-15] MEDS: Dorzolamide 2% Opht Sol 10ml OU SCH ×2 (09:39→22:14)
[2017-11-15] MEDS: GlipiZIDE 5 mg SR Tab PO SCH ×2 (09:40→18:35)
[2017-11-15] MEDS: Enoxaparin 40 mg Syringe SC SCH (09:41)
[2017-11-15] MEDS: Dakin's Topical 0.25%-Half Strength (480 ml) TOP SCH (09:41)
--- NOTE | 2017-11-15 15:10 | CP.PCM.PN ---
<Joyce Gurrola - Last Filed: 11/15/17 18:32> Subjective - Date & Time of Evaluation Date of Evaluation: 11/15/17 Time of Evaluation: 15:10 - Subjective Subjective: Podiatry note for Dr. Oh Ruiz 67 year old male patient was seen at bedside this afternoon for left hallux ulcer. Patient resting comfortably in bed at time of visit. Pt in NAD and AAOx3. Patient admits to mild pain in his left big toe. Patient has PICC line in place and is aware of discharge tomorrow. Patient denies any N/V/F/C associated with the ulceration. Patient denies any other pedal complaints. Objective - Vital Signs/Intake and Output Vital Signs (last 24 hours): Temp Pulse Resp BP Pulse Ox 97.5 F L 79 20 155/93 H 97 11/15/17 08:00 11/15/17 08:00 11/15/17 08:00 11/15/17 09:40 11/15/17 08:00 Intake and Output: 11/15/17 11/15/17 06:59 18:59 Intake Total 1050 450 Balance 1050 450 - Medications Medications: Current Medications Atenolol (Tenormin) 50 mg PO BID [facility] Last Admin: 11/15/17 09:40 Dose: 50 mg Diltiazem HCl (Cardizem) 30 mg PO BID [facility] Last Admin: 11/15/17 09:40 Dose: 30 mg Dorzolamide HCl (Trusopt) 0 ml OU Q12 [facility] Last Admin: 11/15/17 09:39 Dose: 1 drop Enalapril Maleate (Vasotec) 10 mg PO DAILY [facility] Last Admin: 11/15/17 09:40 Dose: 10 mg Enoxaparin Sodium (Lovenox) 40 mg SC DAILY [facility] Last Admin: 11/15/17 09:41 Dose: 40 mg Gabapentin (Neurontin) 300 mg PO BID [facility] Last Admin: 11/15/17 09:40 Dose: 300 mg Glipizide (Glucotrol Xl) 5 mg PO BID [facility] Last Admin: 11/15/17 09:40 Dose: 5 mg Home Med (Patient's Own Drops) 1 drop OU TID [facility] Daptomycin 450 mg/ Sodium (Chloride) 100 mls @ 100 mls/hr IV Q24H [facility] Stop: 11/16/17 20:01 Last Admin: 11/14/17 19:48 Dose: 100 mls/hr Ertapenem 1 gm/ Sodium (Chloride) 100 mls @ 100 mls/hr IV DAILY [facility] Last Admin: 11/14/17 11:02 Dose: Not Given Meropenem (Merrem Iv 1 Gm Premix) 50 mls @ 200 mls/hr IVPB Q8H [facility] Last Admin: 11/15/17 11:45 Dose: 200 mls/hr Insulin Aspart (Novolog) 0 unit SC ACHS [facility] PRN Reason: Protocol Last Admin: 11/15/17 12:08 Dose: Not Given Isosorbide Mononitrate (Ismo) 20 mg PO BID [facility] Last Admin: 11/15/17 09:40 Dose: 20 mg Latanoprost (Xalatan Opht) 0 ml OU HS [facility] Last Admin: 11/14/17 21:33 Dose: 2.5 ml Metformin HCl (Glucophage) 500 mg PO BID [facility] Last Admin: 11/15/17 09:40 Dose: 500 mg Pneumococcal Polyvalent Vaccine (Pneumovax 23 Vaccine) 0.5 ml IM .ONCE ONE Stop: 11/16/17 10:01 Sodium Hypochlorite (Dakins Solution 0.25%) 0 ml TOP DAILY [facility] Last Admin: 11/15/17 09:41 Dose: 1 applic - Labs Labs: 11/10/17 13:45 11/10/17 15:09 PT 11.2 SECONDS (9.7-12.2) 11/10/17 13:45 INR 1.0 11/10/17 13:45 APTT 33 SECONDS (21-34) 11/10/17 13:45 - Constitutional Appears: Well, Non-toxic, No Acute Distress - Extremities Exam Additional comments: Left lower extremity exam: Vasc: DP/PT pulses palpable 1/4. CFT <3 seconds noted to all remaining digits Derm: Open ulceration noted to distal aspect of hallux measuring 4cm x 3cm x 1cm with fibrotic base. Minor purulent drainage is noted upon application of pressure to wound. Mild malodor present. Ulceration is positive for probe to bone assessment. Erythema noted around the ulceration <2cm marginal thickness. Ortho: Decreased ROM to bilateral lower extremities to joints distal to ankle. Neuro: Protective sensation grossly diminished - Neurological Exam Neurological Exam: Alert, Awake, Oriented x3 - Psychiatric Exam Psychiatric exam: Normal Affect, Normal Mood Assessment and Plan - Assessment and Plan (Free Text) Assessment: 67 y/o diabetic male with left hallux osteomyelitis secondary to diabetes mellitus with open ulcer Plan: Patient was seen and evaluated at bedside Discussed plan with attending Dr. Ruiz labs and vitals reviewed; afebrile, NNL Xray of left foot reveals signs consistent with osteomyelitis to left hallux distal phalanx MRI - reveals signs consistent with osteomyelitis to left hallux involving distal phalanx Left foot cleansed with Daikin's solution and dressed with Betadine and DSD PICC line in place Vascular note appreciated Podiatry will continue to follow patient while in house <Oh Ruiz - Last Filed: 11/16/17 10:12> Objective - Vital Signs/Intake and Output Vital Signs (last 24 hours): Temp Pulse Resp BP Pulse Ox 97.6 F 68 20 142/79 100 11/16/17 08:33 11/16/17 08:33 11/16/17 08:33 11/16/17 08:33 11/16/17 08:33 Intake and Output: 11/16/17 11/16/17 06:59 18:59 Intake Total 600 600 Balance 600 600 - Medications Medications: Current Medications Atenolol (Tenormin) 50 mg PO BID [facility] Last Admin: 11/15/17 18:35 Dose: 50 mg Brimonidine Tartrate (Alphagan 0.2% Opht) 0 ml OU TID [facility] Diltiazem HCl (Cardizem) 30 mg PO BID [facility] Last Admin: 11/15/17 18:35 Dose: 30 mg Dorzolamide HCl (Trusopt) 0 ml OU Q12 [facility] Last Admin: 11/15/17 22:14 Dose: 1 drop Enalapril Maleate (Vasotec) 10 mg PO DAILY [facility] Last Admin: 11/15/17 09:40 Dose: 10 mg Enoxaparin Sodium (Lovenox) 40 mg SC DAILY [facility] Last Admin: 11/15/17 09:41 Dose: 40 mg Gabapentin (Neurontin) 300 mg PO BID [facility] Last Admin: 11/15/17 18:35 Dose: 300 mg Glipizide (Glucotrol Xl) 5 mg PO BID [facility] Last Admin: 11/15/17 18:35 Dose: 5 mg Daptomycin 450 mg/ Sodium (Chloride) 100 mls @ 100 mls/hr IV Q24H [facility] Stop: 11/16/17 20:01 Last Admin: 11/15/17 19:41 Dose: 100 mls/hr Ertapenem 1 gm/ Sodium (Chloride) 100 mls @ 100 mls/hr IV DAILY [facility] Last Admin: 11/14/17 11:02 Dose: Not Given Meropenem 1 gm/ Sodium (Chloride) 100 mls @ 200 mls/hr IVPB Q8H [facility] Last Admin: 11/16/17 03:30 Dose: 200 mls/hr Insulin Aspart (Novolog) 0 unit SC ACHS [facility] PRN Reason: Protocol Last Admin: 11/16/17 08:06 Dose: Not Given Isosorbide Mononitrate (Ismo) 20 mg PO BID [facility] Last Admin: 11/15/17 18:37 Dose: 20 mg Latanoprost (Xalatan Opht) 0 ml OU HS [facility] Last Admin: 11/15/17 22:15 Dose: 2.5 ml Metformin HCl (Glucophage) 500 mg PO BID [facility] Last Admin: 11/15/17 18:35 Dose: 500 mg Sodium Hypochlorite (Dakins Solution 0.25%) 0 ml TOP DAILY [facility] Last Admin: 11/15/17 09:41 Dose: 1 applic Timolol Maleate (Timoptic 0.5% Ophth Soln) 0 drop OU BID [facility] - Labs Labs: 11/10/17 13:45 11/10/17 15:09 PT 11.2 SECONDS (9.7-12.2) 11/10/17 13:45 INR 1.0 11/10/17 13:45 APTT 33 SECONDS (21-34) 11/10/17 13:45 Attending/Attestation - Attestation I have fully participated in the care of the patient.: Yes I have reviewed all pertinent clinical information, including history, physical exam and plan: Yes
--- NOTE | 2017-11-15 17:44 | CP.PCM.PN ---
Subjective - Date & Time of Evaluation Date of Evaluation: 11/15/17 Time of Evaluation: 09:00 - Subjective Subjective: iv rx in progress fr OM leftt great toe refuses amputation Objective - Vital Signs/Intake and Output Vital Signs (last 24 hours): Temp Pulse Resp BP Pulse Ox 97.5 F L 79 20 155/93 H 97 11/15/17 08:00 11/15/17 08:00 11/15/17 08:00 11/15/17 09:40 11/15/17 08:00 Intake and Output: 11/15/17 11/15/17 06:59 18:59 Intake Total 1050 450 Balance 1050 450 - Medications Medications: Current Medications Atenolol (Tenormin) 50 mg PO BID [facility] Last Admin: 11/15/17 09:40 Dose: 50 mg Diltiazem HCl (Cardizem) 30 mg PO BID [facility] Last Admin: 11/15/17 09:40 Dose: 30 mg Dorzolamide HCl (Trusopt) 0 ml OU Q12 [facility] Last Admin: 11/15/17 09:39 Dose: 1 drop Enalapril Maleate (Vasotec) 10 mg PO DAILY [facility] Last Admin: 11/15/17 09:40 Dose: 10 mg Enoxaparin Sodium (Lovenox) 40 mg SC DAILY [facility] Last Admin: 11/15/17 09:41 Dose: 40 mg Gabapentin (Neurontin) 300 mg PO BID [facility] Last Admin: 11/15/17 09:40 Dose: 300 mg Glipizide (Glucotrol Xl) 5 mg PO BID [facility] Last Admin: 11/15/17 09:40 Dose: 5 mg Home Med (Patient's Own Drops) 1 drop OU TID [facility] Daptomycin 450 mg/ Sodium (Chloride) 100 mls @ 100 mls/hr IV Q24H [facility] Stop: 11/16/17 20:01 Last Admin: 11/14/17 19:48 Dose: 100 mls/hr Ertapenem 1 gm/ Sodium (Chloride) 100 mls @ 100 mls/hr IV DAILY [facility] Last Admin: 11/14/17 11:02 Dose: Not Given Meropenem (Merrem Iv 1 Gm Premix) 50 mls @ 200 mls/hr IVPB Q8H [facility] Stop: 11/16/17 00:00 Last Admin: 11/15/17 11:45 Dose: 200 mls/hr Meropenem 1 gm/ Sodium (Chloride) 100 mls @ 200 mls/hr IVPB Q8H [facility] Insulin Aspart (Novolog) 0 unit SC ACHS [facility] PRN Reason: Protocol Last Admin: 11/15/17 12:08 Dose: Not Given Isosorbide Mononitrate (Ismo) 20 mg PO BID [facility] Last Admin: 11/15/17 09:40 Dose: 20 mg Latanoprost (Xalatan Opht) 0 ml OU HS [facility] Last Admin: 11/14/17 21:33 Dose: 2.5 ml Metformin HCl (Glucophage) 500 mg PO BID [facility] Last Admin: 11/15/17 09:40 Dose: 500 mg Pneumococcal Polyvalent Vaccine (Pneumovax 23 Vaccine) 0.5 ml IM .ONCE ONE Stop: 11/16/17 10:01 Sodium Hypochlorite (Dakins Solution 0.25%) 0 ml TOP DAILY [facility] Last Admin: 11/15/17 09:41 Dose: 1 applic - Labs Labs: 11/10/17 13:45 11/10/17 15:09 PT 11.2 SECONDS (9.7-12.2) 11/10/17 13:45 INR 1.0 11/10/17 13:45 APTT 33 SECONDS (21-34) 11/10/17 13:45 - Constitutional Appears: Non-toxic, Chronically Ill - Head Exam Head Exam: NORMOCEPHALIC - Eye Exam Eye Exam: PERRL - ENT Exam ENT Exam: Mucous Membranes Dry - Neck Exam Neck Exam: absent: Lymphadenopathy - Respiratory Exam Respiratory Exam: Decreased Breath Sounds - Cardiovascular Exam Cardiovascular Exam: REGULAR RHYTHM - GI/Abdominal Exam GI & Abdominal Exam: Distended, Soft Assessment and Plan (1) Acute osteomyelitis of toe of left foot Status: Acute - Assessment and Plan (Free Text) Plan: cont rx for 6 -8 weeks
[2017-11-15] MEDS: Latanoprost 2.5 ml Opht Soln OU SCH (22:15)
--- NOTE | 2017-11-15 22:35 | CP.PCM.PN ---
Subjective - Date & Time of Evaluation Date of Evaluation: 11/15/17 Time of Evaluation: 12:20 - Subjective Subjective: LT BIG TOE OM. AFEBRILE. Objective - Vital Signs/Intake and Output Vital Signs (last 24 hours): Temp Pulse Resp BP Pulse Ox 97.6 F 64 20 127/72 98 11/15/17 15:00 11/15/17 15:00 11/15/17 15:00 11/15/17 15:00 11/15/17 15:00 Intake and Output: 11/15/17 11/16/17 18:59 06:59 Intake Total 450 600 Balance 450 600 - Medications Medications: Current Medications Atenolol (Tenormin) 50 mg PO BID [facility] Last Admin: 11/15/17 18:35 Dose: 50 mg Diltiazem HCl (Cardizem) 30 mg PO BID [facility] Last Admin: 11/15/17 18:35 Dose: 30 mg Dorzolamide HCl (Trusopt) 0 ml OU Q12 [facility] [place] Last Admin: 11/15/17 22:14 Dose: 1 drop Enalapril Maleate (Vasotec) 10 mg PO DAILY [facility] [place] Last Admin: 11/15/17 09:40 Dose: 10 mg Enoxaparin Sodium (Lovenox) 40 mg SC DAILY [facility] [place] Last Admin: 11/15/17 09:41 Dose: 40 mg Gabapentin (Neurontin) 300 mg PO BID [facility] [place] Last Admin: 11/15/17 18:35 Dose: 300 mg Glipizide (Glucotrol Xl) 5 mg PO BID [facility] [place] Last Admin: 11/15/17 18:35 Dose: 5 mg Home Med (Patient's Own Drops) 1 drop OU TID [facility] [place] Daptomycin 450 mg/ Sodium (Chloride) 100 mls @ 100 mls/hr IV Q24H [facility] [place] Stop: 11/16/17 20:01 Last Admin: 11/15/17 19:41 Dose: 100 mls/hr Ertapenem 1 gm/ Sodium (Chloride) 100 mls @ 100 mls/hr IV DAILY [facility] [place] Last Admin: 11/14/17 11:02 Dose: Not Given Meropenem (Merrem Iv 1 Gm Premix) 50 mls @ 200 mls/hr IVPB Q8H [facility] [place] Stop: 11/16/17 00:00 Last Admin: 11/15/17 18:39 Dose: 200 mls/hr Meropenem 1 gm/ Sodium (Chloride) 100 mls @ 200 mls/hr IVPB Q8H [facility] [place] Insulin Aspart (Novolog) 0 unit SC ACHS [facility] [place] PRN Reason: Protocol Last Admin: 11/15/17 22:14 Dose: Not Given Isosorbide Mononitrate (Ismo) 20 mg PO BID [facility] [place] Last Admin: 11/15/17 18:37 Dose: 20 mg Latanoprost (Xalatan Opht) 0 ml OU HS [facility] [place] Last Admin: 11/15/17 22:15 Dose: 2.5 ml Metformin HCl (Glucophage) 500 mg PO BID [facility] [place] Last Admin: 11/15/17 18:35 Dose: 500 mg Pneumococcal Polyvalent Vaccine (Pneumovax 23 Vaccine) 0.5 ml IM .ONCE ONE Stop: 11/16/17 10:01 Sodium Hypochlorite (Dakins Solution 0.25%) 0 ml TOP DAILY [facility] Last Admin: 11/15/17 09:41 Dose: 1 applic - Labs Labs: 11/10/17 13:45 11/10/17 15:09 PT 11.2 SECONDS (9.7-12.2) 11/10/17 13:45 INR 1.0 11/10/17 13:45 APTT 33 SECONDS (21-34) 11/10/17 13:45 - Constitutional Appears: No Acute Distress, Chronically Ill - Eye Exam Eye Exam: PERRL - ENT Exam ENT Exam: Mucous Membranes Moist - Respiratory Exam Respiratory Exam: Clear to Ausculation Bilateral, NORMAL BREATHING PATTERN - Cardiovascular Exam Cardiovascular Exam: REGULAR RHYTHM, +S1, +S2 - GI/Abdominal Exam GI & Abdominal Exam: Soft, Normal Bowel Sounds - Neurological Exam Neurological Exam: Alert, Awake, CN II-XII Intact, Normal Gait, Oriented x3 - Psychiatric Exam Psychiatric exam: Normal Affect, Normal Mood Assessment and Plan - Assessment and Plan (Free Text) Assessment: SAME. Plan: CT IV ANTIBIOTICS. FOR OUT PT TREATMENT.
[2017-11-16] MEDS: (Novolog) Insulin Aspart, Recombinant 100 u/ml 10 ml vial SC SCH ×3 (08:06→17:24)
[2017-11-16] MEDS ORDERED: Pneumococcal 23-Valent Vaccine IM ONE (10:00)
--- NOTE | 2017-11-16 10:40 | CP.PCM.PN ---
Subjective - Date & Time of Evaluation Date of Evaluation: 11/16/17 Time of Evaluation: 10:38 - Subjective Subjective: PT FOR D/C HOME TODAY. HAS BEEN CLEARED BY CONSULTS PER MY DISCUSSION WITH THEM ON THURSDAY. RX FOR IV ABX GIVEN TO CM TO MAKE ARRANGEMENTS FOR [facility]. PER PT, DAILY WOUND CARE THAT IS NOT DONE IN DR. BARNES'S WILL BE DONE BY HIMSELF AND/OR HIS SON WHO IS AN OR TECH. PICC IN PLACE SINCE LAST WEEK. PT PROVIDED WITH GAUZE FOR DRESSING CHANGES; RX FOR DAKEN'S SOLUTION SENT TO PHARMACY FOR PT P/U. RX FOR GABAPENTIN SENT TO PHARMACY WELL. ALL D /C INFORMATION, F/U INFORMATION, WOUND CARE, AND MEDS DISCUSSED AT LENGTH WITH THE PT. NO FURTHER ORDERS. -FOLLOW UP WITH DR. Levi OBREGON IN THE OFFICE WITHIN 5-7 DAYS OF DISCHARGE---CALL THE OFFICE TOMORROW TO MAKE YOUR APPT. -FOLLOW UP WITH DR. BARNES (PODIATRY) IN THE OFFICE WITHIN 3-5 DAYS OF DISCHARGE FOR WOUND CARE AND MANAGEMENT---CALL THE OFFICE TOMORROW TO MAKE YOUR APPT. -PER DR. JEFFERY'S RECOMMENDATIONS, YOU NEED TO CONTINUE IV ANTIBIOTICS FOR A TOTAL OF 6 WEEKS---YOU HAVE BEEN ARRANGED TO GET YOUR ANTIBIOTICS AT THE OUTPATIENT INF[facility]ION CENTER. THEY WILL GIVE YOU DIRECTIONS TO HOW TO RECEIVE YOU ANTIBIOTICS ON SATURDAYS AND SUNDAYS. YOU WILL BE ON DAPTOMYCIN 450MG IV ONCE A DAY AND INVANZ 1 GM IV ONCE A DAY, BOTH FOR 6 WEEKS (START ON 11/14/17 AND LAST DOSE TO BE GIVEN ON 12/26/17). -DR. JEFFERY ALSO RECOMMENDS LABS TO BE DONE ONCE A WEEK UNTIL YOU FINISH THE 6 WEEKS OF ANTIBIOTICS: CBC, CMP, CPK, CRP. -WOUND CARE ORDERS TO BE DONE AT HOME ONE DAYS YOU DO NOT SEE DR. BARNES: cleanse foot with Daikin's solution and cover with a Betadine soaked gauze and cover with dry, sterile dressing. Do this once a day. -KEEP PICC LINE AREA DRY AND CLEAN. DO NOT REMOVE AT HOME. -FOR ANY OTHER QUESTIONS OR CONCERNS, CONTACT DR. OBREGON'S OFFICE. Objective - Vital Signs/Intake and Output Vital Signs (last 24 hours): Temp Pulse Resp BP Pulse Ox 97.6 F 68 20 142/79 100 11/16/17 08:33 11/16/17 08:33 11/16/17 08:33 11/16/17 08:33 11/16/17 08:33 Intake and Output: 11/16/17 11/16/17 06:59 18:59 Intake Total 600 600 Balance 600 600 - Medications Medications: Current Medications Atenolol (Tenormin) 50 mg PO BID [facility] Last Admin: 11/15/17 18:35 Dose: 50 mg Brimonidine Tartrate (Alphagan 0.2% Opht) 0 ml OU TID [facility] Diltiazem HCl (Cardizem) 30 mg PO BID [facility] Last Admin: 11/15/17 18:35 Dose: 30 mg Dorzolamide HCl (Trusopt) 0 ml OU Q12 [facility] Last Admin: 11/15/17 22:14 Dose: 1 drop Enalapril Maleate (Vasotec) 10 mg PO DAILY [facility] Last Admin: 11/15/17 09:40 Dose: 10 mg Enoxaparin Sodium (Lovenox) 40 mg SC DAILY [facility] Last Admin: 11/15/17 09:41 Dose: 40 mg Gabapentin (Neurontin) 300 mg PO BID [facility] Last Admin: 11/15/17 18:35 Dose: 300 mg Glipizide (Glucotrol Xl) 5 mg PO BID [facility] Last Admin: 11/15/17 18:35 Dose: 5 mg Daptomycin 450 mg/ Sodium (Chloride) 100 mls @ 100 mls/hr IV Q24H [facility] Stop: 11/16/17 20:01 Last Admin: 11/15/17 19:41 Dose: 100 mls/hr Ertapenem 1 gm/ Sodium (Chloride) 100 mls @ 100 mls/hr IV DAILY [facility] Last Admin: 11/14/17 11:02 Dose: Not Given Meropenem 1 gm/ Sodium (Chloride) 100 mls @ 200 mls/hr IVPB Q8H [facility] Last Admin: 11/16/17 03:30 Dose: 200 mls/hr Insulin Aspart (Novolog) 0 unit SC ACHS [facility] PRN Reason: Protocol Last Admin: 11/16/17 08:06 Dose: Not Given Isosorbide Mononitrate (Ismo) 20 mg PO BID [facility] Last Admin: 11/15/17 18:37 Dose: 20 mg Latanoprost (Xalatan Opht) 0 ml OU HS [facility] Last Admin: 11/15/17 22:15 Dose: 2.5 ml Metformin HCl (Glucophage) 500 mg PO BID [facility] Last Admin: 11/15/17 18:35 Dose: 500 mg Sodium Hypochlorite (Dakins Solution 0.25%) 0 ml TOP DAILY [facility] Last Admin: 11/15/17 09:41 Dose: 1 applic Timolol Maleate (Timoptic 0.5% Oph Soln) 0 drop OU BID [facility] - Labs Labs: 11/10/17 13:45 11/10/17 15:09 PT 11.2 SECONDS (9.7-12.2) 11/10/17 13:45 INR 1.0 11/10/17 13:45 APTT 33 SECONDS (21-34) 11/10/17 13:45
[2017-11-16] MEDS: GlipiZIDE 5 mg SR Tab PO SCH ×2 (10:57→17:23)
[2017-11-16] MEDS: Enoxaparin 40 mg Syringe SC SCH (10:59)
[2017-11-16] MEDS: Brimonidine 0.2% Opth Sol (5ml) OU SCH ×2 (11:00→14:27)
[2017-11-16] MEDS: Dorzolamide 2% Opht Sol 10ml OU SCH (11:00)
[2017-11-16] MEDS: Dakin's Topical 0.25%-Half Strength (480 ml) TOP SCH (11:00)
--- NOTE | 2017-11-16 11:03 | CP.PCM.PN ---
Subjective - Date & Time of Evaluation Date of Evaluation: 11/16/17 Time of Evaluation: 09:00 - Subjective Subjective: disability forms fiilled out for d/c on IV rx Objective - Vital Signs/Intake and Output Vital Signs (last 24 hours): Temp Pulse Resp BP Pulse Ox 97.6 F 68 20 142/79 100 11/16/17 08:33 11/16/17 08:33 11/16/17 08:33 11/16/17 08:33 11/16/17 08:33 Intake and Output: 11/16/17 11/16/17 06:59 18:59 Intake Total 600 600 Balance 600 600 - Medications Medications: Current Medications Atenolol (Tenormin) 50 mg PO BID [facility] Last Admin: 11/16/17 10:57 Dose: 50 mg Brimonidine Tartrate (Alphagan 0.2% Opht) 0 ml OU TID [facility] Diltiazem HCl (Cardizem) 30 mg PO BID [facility] Last Admin: 11/16/17 10:57 Dose: 30 mg Dorzolamide HCl (Trusopt) 0 ml OU Q12 [facility] Last Admin: 11/15/17 22:14 Dose: 1 drop Enalapril Maleate (Vasotec) 10 mg PO DAILY [facility] Last Admin: 11/15/17 09:40 Dose: 10 mg Enoxaparin Sodium (Lovenox) 40 mg SC DAILY [facility] Last Admin: 11/15/17 09:41 Dose: 40 mg Gabapentin (Neurontin) 300 mg PO BID [facility] Last Admin: 11/16/17 10:57 Dose: 300 mg Glipizide (Glucotrol Xl) 5 mg PO BID [facility] Last Admin: 11/16/17 10:57 Dose: 5 mg Daptomycin 450 mg/ Sodium (Chloride) 100 mls @ 100 mls/hr IV Q24H [facility] Stop: 11/16/17 20:01 Last Admin: 11/15/17 19:41 Dose: 100 mls/hr Ertapenem 1 gm/ Sodium (Chloride) 100 mls @ 100 mls/hr IV DAILY [facility] Last Admin: 11/14/17 11:02 Dose: Not Given Meropenem 1 gm/ Sodium (Chloride) 100 mls @ 200 mls/hr IVPB Q8H [facility] Last Admin: 11/16/17 03:30 Dose: 200 mls/hr Insulin Aspart (Novolog) 0 unit SC ACHS [facility] PRN Reason: Protocol Last Admin: 11/16/17 08:06 Dose: Not Given Isosorbide Mononitrate (Ismo) 20 mg PO BID [facility] Last Admin: 11/16/17 10:57 Dose: 20 mg Latanoprost (Xalatan Opht) 0 ml OU HS [facility] Last Admin: 11/15/17 22:15 Dose: 2.5 ml Metformin HCl (Glucophage) 500 mg PO BID [facility] Last Admin: 11/16/17 10:57 Dose: 500 mg Sodium Hypochlorite (Dakins Solution 0.25%) 0 ml TOP DAILY [facility] Last Admin: 11/15/17 09:41 Dose: 1 applic Timolol Maleate (Timoptic 0.5% Ophth Soln) 0 drop OU BID [facility] - Labs Labs: 11/10/17 13:45 11/10/17 15:09 PT 11.2 SECONDS (9.7-12.2) 11/10/17 13:45 INR 1.0 11/10/17 13:45 APTT 33 SECONDS (21-34) 11/10/17 13:45 - Constitutional Appears: Chronically Ill - Head Exam Head Exam: NORMOCEPHALIC - Eye Exam Eye Exam: PERRL Pupil Exam: NORMAL ACCOMODATION - ENT Exam ENT Exam: Mucous Membranes Dry - Neck Exam Neck Exam: absent: Lymphadenopathy - Respiratory Exam Respiratory Exam: Decreased Breath Sounds, Clear to Ausculation Bilateral - Cardiovascular Exam Cardiovascular Exam: REGULAR RHYTHM, +S1, +S2 - GI/Abdominal Exam GI & Abdominal Exam: Distended, Soft - Rectal Exam Rectal Exam: Deferred - Exam Exam: NORMAL INSPECTION - Extremities Exam Extremities Exam: Pedal Edema, Tenderness Assessment and Plan (1) Acute osteomyelitis of toe of left foot Status: Acute
--- NOTE | 2017-11-16 12:38 | CP.PCM.PN ---
Subjective - Date & Time of Evaluation Date of Evaluation: 11/16/17 Time of Evaluation: 12:36 - Subjective Subjective: MEDICALLY STABLE. AFEBRILE. Objective - Vital Signs/Intake and Output Vital Signs (last 24 hours): Temp Pulse Resp BP Pulse Ox 97.6 F 68 20 142/79 100 11/16/17 08:33 11/16/17 08:33 11/16/17 08:33 11/16/17 10:58 11/16/17 08:33 Intake and Output: 11/16/17 11/16/17 06:59 18:59 Intake Total 600 600 Balance 600 600 - Medications Medications: Current Medications Atenolol (Tenormin) 50 mg PO BID [facility] Last Admin: 11/16/17 10:57 Dose: 50 mg Brimonidine Tartrate (Alphagan 0.2% Opht) 0 ml OU TID [facility] Last Admin: 11/16/17 11:00 Dose: 1 drop Diltiazem HCl (Cardizem) 30 mg PO BID [facility] Last Admin: 11/16/17 10:57 Dose: 30 mg Dorzolamide HCl (Trusopt) 0 ml OU Q12 [facility] Last Admin: 11/16/17 11:00 Dose: 1 drop Enalapril Maleate (Vasotec) 10 mg PO DAILY [facility] Last Admin: 11/16/17 10:58 Dose: 10 mg Enoxaparin Sodium (Lovenox) 40 mg SC DAILY [facility] Last Admin: 11/16/17 10:59 Dose: 40 mg Gabapentin (Neurontin) 300 mg PO BID [facility] Last Admin: 11/16/17 10:57 Dose: 300 mg Glipizide (Glucotrol Xl) 5 mg PO BID [facility] Last Admin: 11/16/17 10:57 Dose: 5 mg Daptomycin 450 mg/ Sodium (Chloride) 100 mls @ 100 mls/hr IV Q24H [facility] Stop: 11/16/17 20:01 Last Admin: 11/15/17 19:41 Dose: 100 mls/hr Ertapenem 1 gm/ Sodium (Chloride) 100 mls @ 100 mls/hr IV DAILY [facility] Last Admin: 11/14/17 11:02 Dose: Not Given Meropenem 1 gm/ Sodium (Chloride) 100 mls @ 200 mls/hr IVPB Q8H [facility] Last Admin: 11/16/17 11:14 Dose: 200 mls/hr Insulin Aspart (Novolog) 0 unit SC ACHS [facility] PRN Reason: Protocol Last Admin: 11/16/17 12:04 Dose: Not Given Isosorbide Mononitrate (Ismo) 20 mg PO BID [facility] Last Admin: 11/16/17 10:57 Dose: 20 mg Latanoprost (Xalatan Opht) 0 ml OU HS [facility] Last Admin: 11/15/17 22:15 Dose: 2.5 ml Metformin HCl (Glucophage) 500 mg PO BID [facility] Last Admin: 11/16/17 10:57 Dose: 500 mg Sodium Hypochlorite (Dakins Solution 0.25%) 0 ml TOP DAILY [facility] Last Admin: 11/16/17 11:00 Dose: 1 applic Timolol Maleate (Timoptic 0.5% Ophth Soln) 0 drop OU BID [facility] Last Admin: 11/16/17 11:00 Dose: 1 drop - Labs Labs: 11/10/17 13:45 11/10/17 15:09 PT 11.2 SECONDS (9.7-12.2) 11/10/17 13:45 INR 1.0 11/10/17 13:45 APTT 33 SECONDS (21-34) 11/10/17 13:45 - Constitutional Appears: No Acute Distress, Chronically Ill - Eye Exam Eye Exam: PERRL - ENT Exam ENT Exam: Mucous Membranes Moist - Respiratory Exam Respiratory Exam: Clear to Ausculation Bilateral, NORMAL BREATHING PATTERN - Cardiovascular Exam Cardiovascular Exam: REGULAR RHYTHM, +S1, +S2 - GI/Abdominal Exam GI & Abdominal Exam: Soft, Normal Bowel Sounds - Back Exam Back Exam: NORMAL INSPECTION - Neurological Exam Neurological Exam: Alert, Awake, CN II-XII Intact, Normal Gait, Oriented x3 Assessment and Plan - Assessment and Plan (Free Text) Assessment: OM LT BIG TOE. DM. FOOT ULCER. Plan: FOR DISCHARGE HOME. OUT PT IV ABT TREATMENT.
[2017-11-16 15:17] VITALS: O2SAT 99
--- NOTE | 2017-11-16 16:12 | CP.PCM.PN ---
<Linda Wheeler - Last Filed: 11/16/17 16:10> Subjective - Date & Time of Evaluation Date of Evaluation: 11/16/17 Time of Evaluation: 16:10 - Subjective Subjective: Podiatry note for Dr. Oh Ruiz 67 year old male patient was seen at bedside this afternoon for left hallux ulcer. Patient resting comfortably in bed at time of visit. Pt in NAD and AAOx3. Patient admits to less pain in his left big toe. Patient has PICC line in place and is being discharged today. Patient denies any N/V/F/C associated with the ulceration. Patient denies any other pedal complaints. Objective - Vital Signs/Intake and Output Vital Signs (last 24 hours): Temp Pulse Resp BP Pulse Ox 97.6 F 68 20 142/79 99 11/16/17 08:33 11/16/17 13:30 11/16/17 08:33 11/16/17 10:58 11/16/17 13:30 Intake and Output: 11/16/17 11/16/17 06:59 18:59 Intake Total 600 1060 Balance 600 1060 - Medications Medications: Current Medications Atenolol (Tenormin) 50 mg PO BID [facility] Last Admin: 11/16/17 10:57 Dose: 50 mg Brimonidine Tartrate (Alphagan 0.2% Opht) 0 ml OU TID [facility] Last Admin: 11/16/17 14:27 Dose: 1 drop Diltiazem HCl (Cardizem) 30 mg PO BID [facility] Last Admin: 11/16/17 10:57 Dose: 30 mg Dorzolamide HCl (Trusopt) 0 ml OU Q12 [facility] Last Admin: 11/16/17 11:00 Dose: 1 drop Enalapril Maleate (Vasotec) 10 mg PO DAILY [facility] Last Admin: 11/16/17 10:58 Dose: 10 mg Enoxaparin Sodium (Lovenox) 40 mg SC DAILY [facility] Last Admin: 11/16/17 10:59 Dose: 40 mg Gabapentin (Neurontin) 300 mg PO BID [facility] Last Admin: 11/16/17 10:57 Dose: 300 mg Glipizide (Glucotrol Xl) 5 mg PO BID [facility] Last Admin: 11/16/17 10:57 Dose: 5 mg Daptomycin 450 mg/ Sodium (Chloride) 100 mls @ 100 mls/hr IV Q24H [facility] Stop: 11/16/17 20:01 Last Admin: 11/15/17 19:41 Dose: 100 mls/hr Ertapenem 1 gm/ Sodium (Chloride) 100 mls @ 100 mls/hr IV DAILY [facility] Last Admin: 11/14/17 11:02 Dose: Not Given Meropenem 1 gm/ Sodium (Chloride) 100 mls @ 200 mls/hr IVPB Q8H [facility] Last Admin: 11/16/17 11:14 Dose: 200 mls/hr Insulin Aspart (Novolog) 0 unit SC ACHS [facility] PRN Reason: Protocol Last Admin: 11/16/17 12:04 Dose: Not Given Isosorbide Mononitrate (Ismo) 20 mg PO BID [facility] Last Admin: 11/16/17 10:57 Dose: 20 mg Latanoprost (Xalatan Opht) 0 ml OU HS [facility] Last Admin: 11/15/17 22:15 Dose: 2.5 ml Metformin HCl (Glucophage) 500 mg PO BID [facility] Last Admin: 11/16/17 10:57 Dose: 500 mg Sodium Hypochlorite (Dakins Solution 0.25%) 0 ml TOP DAILY [facility] Last Admin: 11/16/17 11:00 Dose: 1 applic Timolol Maleate (Timoptic 0.5% Ophth Soln) 0 drop OU BID [facility] Last Admin: 11/16/17 11:00 Dose: 1 drop - Labs Labs: 11/10/17 13:45 11/10/17 15:09 PT 11.2 SECONDS (9.7-12.2) 11/10/17 13:45 INR 1.0 11/10/17 13:45 APTT 33 SECONDS (21-34) 11/10/17 13:45 - Constitutional Appears: Well, Non-toxic, No Acute Distress - Extremities Exam Additional comments: Left lower extremity exam: Vasc: DP/PT pulses palpable 1/4. CFT <3 seconds noted to all remaining digits Derm: Open ulceration noted to distal aspect of hallux measuring 4cm x 3cm x 1cm with fibrotic base. Minor purulent drainage is noted upon application of pressure to wound. Mild malodor present. Ulceration is positive for probe to bone assessment. Erythema noted around the ulceration <2cm marginal thickness. Ortho: Decreased ROM to bilateral lower extremities to joints distal to ankle. Neuro: Protective sensation grossly diminished - Neurological Exam Neurological Exam: Alert, Awake, Oriented x3 - Psychiatric Exam Psychiatric exam: Normal Affect, Normal Mood Assessment and Plan - Assessment and Plan (Free Text) Assessment: 67 y/o diabetic male with left hallux osteomyelitis secondary to diabetes mellitus with open ulceration Plan: Patient was seen and evaluated at bedside Discussed plan with attending Dr. Ruiz labs and vitals reviewed; afebrile, NNL Xray of left foot reveals signs consistent with osteomyelitis to left hallux distal phalanx MRI - reveals signs consistent with osteomyelitis to left hallux involving distal phalanx Left foot cleansed with Daikin's solution and dressed with Betadine and DSD PICC line in place Vascular note appreciated patient stable for D/C and to follow up with Dr. Ruiz as outpatient Podiatry will continue to follow patient while in house <Oh Ruiz - Last Filed: 11/17/17 11:16> Objective - Vital Signs/Intake and Output Vital Signs (last 24 hours): Temp Pulse Resp BP Pulse Ox 98 F 74 20 133/75 99 11/16/17 15:00 11/16/17 15:00 11/16/17 15:00 11/16/17 15:00 11/16/17 15:00 - Labs Labs: 11/10/17 13:45 11/10/17 15:09 PT 11.2 SECONDS (9.7-12.2) 11/10/17 13:45 INR 1.0 11/10/17 13:45 APTT 33 SECONDS (21-34) 11/10/17 13:45 Attending/Attestation - Attestation I have fully participated in the care of the patient.: Yes I have reviewed all pertinent clinical information, including history, physical exam and plan: Yes
[2017-11-16 17:14] VITALS: BP 133/75; PULSE 74; TEMP 98
--- NOTE | 2017-11-17 12:31 | SPECPROC ---
PROCEDURE: PERIPHERALLY INSERTED CENTRAL VENOUS CATHETER INSERTION CLINICAL HISTORY: 67-year-old male with lower extremity infection requiring buttermaker intravenous antibiotics is referred to Interventional Radiology for PICC insertion. COMPARISON: None. PROCEDURE: 1. Focused ultrasound of the right upper extremity vasculature. 2. Ultrasound-guided access. 3. Insertion of peripherally inserted central venous catheter. 4. Fluoroscopic localization of catheter tip. PRE-PROCEDURE FINDINGS: 1. Patent right basilic vein. POST-PROCEDURE FINDINGS: 1. Placement of 4 Kiswahili single-lumen PICC. 2. Catheter length: 41 cm. 3. Catheter tip at cavoatrial junction. INTERVENTIONAL RADIOLOGIST: Kirk Huntley M.D. (the attending was present for the entire procedure) ANESTHESIA: None. MEDICATION: Lidocaine 1% for local subcutaneous analgesia. COMPLICATIONS: None. RADIATION DOSE: Fluoroscopy Time: 33 seconds Cumulative Dose: 3 mGy PROCEDURE DESCRIPTION AND FINDINGS: The risks, benefits, alternatives and possible complications of the procedure were fully discussed; all questions were answered and informed consent was obtained. The patient was brought into the interventional suite and a pre-procedure 'time-out' was performed. The patient was placed on the fluoroscopy table in the supine position. The right upper extremity was prepped and draped in the usual sterile fashion. Maximum sterile barrier precautions were maintained throughout the entire procedure. Preliminary ultrasound images of the right upper extremity vasculature demonstrate patency of the right basilic vein. Following subcutaneous infiltration of 1% lidocaine for local analgesia, under ultrasound guidance, a 21-gauge needle was advanced into the right basilic vein with real-time visualization of needle entry. The ultrasound images were permanently recorded and submitted to the PACS. A 0.018 guidewire was advanced centrally to the cavoatrial junction. A 4.5 Kiswahili peel-away sheath was advanced over the guidewire. After obtaining length measurement, a 4 Kiswahili single-lumen PICC was placed with the tip of the catheter at the cavoatrial junction. The total length of the catheter is 41 cm. The hub of the PICC was secured to the skin using a sterile adhesive bandage. The patient tolerated the procedure well without immediate post-procedure complications and was transferred back to the floor in stable condition. IMPRESSION: SUCCESSFUL INSERTION OF RIGHT UPPER EXTREMITY PICC. PICC OK TO USE.
== END 2017-11-16 19:00 | disposition home or self-care (01) | DRG 300 ==
LOC: C.ER 12:21 → C.9E 16:22 → C.3T 17:03
PROVIDERS: ADMIT Internal Medicine; ATTEND Internal Medicine
PROC: 02HV33Z Insertion of Infusion Device into Superior Vena Cava, Percutaneous Approach (ICD-10-PCS; principal; 2017-11-13)
PROC: B548ZZA Ultrasonography of Superior Vena Cava, Guidance (ICD-10-PCS; 2017-11-13)
DX: E11.52 Type 2 diabetes mellitus with diabetic peripheral angiopathy with gangrene (principal); E11.621 Type 2 diabetes mellitus with foot ulcer; M86.172 Other acute osteomyelitis, left ankle and foot; E11.42 Type 2 diabetes mellitus with diabetic polyneuropathy; L97.526 Non-pressure chronic ulcer of other part of left foot with bone involvement without evidence of necrosis; L03.116 Cellulitis of left lower limb; E11.69 Type 2 diabetes mellitus with other specified complication; I10 Essential (primary) hypertension; Z79.4 Long term (current) use of insulin; Z89.422 Acquired absence of other left toe(s)

== ENCOUNTER 2018-05-22 15:32 | Emergency (ER) | payer OTHER ==
[2018-05-22 15:34] VITALS: BMI 26.2
[2018-05-22 15:37] VITALS: BP 186/99; PULSE 82; RESP 17; TEMP 98.1; O2SAT 97
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
== END 2018-05-22 16:02 | disposition home or self-care (01) ==
LOC: C.ER 15:32
DX: Z57.8 Occupational exposure to other risk factors (principal)

== ENCOUNTER 2019-03-27 19:18 | Emergency (ER) | payer OTHER ==
[2019-03-27 19:19] VITALS: BMI 26.2
[2019-03-27 19:34] VITALS: BP 150/81; PULSE 73; RESP 18; TEMP 97.8; O2SAT 97
--- NOTE | 2019-03-27 19:38 | C.PDOC ---
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 He is able to ambulate and states that he wants to go back to work. He denies any pain, swelling, bleeding. He is unsure of his last Tetanus shot. No other complaints at this time. Time Seen by Provider: 03/27/19 19:38 Chief Complaint (Nursing): Lower Extremity Problem/Injury History Per: Patient History/Exam Limitations: no limitations Onset/Duration Of Symptoms: Hrs Current Symptoms Are (Timing): Still Present Recent travel outside of the [place]: No Additional History Per: Patient Past Medical History Reviewed: Historical Data, Nursing Documentation, Vital Signs Vital Signs: Last Vital Signs Temp 97.8 F 03/27/19 19:30 Pulse 73 03/27/19 19:30 Resp 18 03/27/19 19:30 BP 150/81 03/27/19 19:30 Pulse Ox 97 03/27/19 19:30 Primary Care Provider: Manuela Geronimo - Medical History PMH: Arthritis (KNEE JT), Diabetes, HTN Denies: Chronic Kidney Disease Surgical History: No Surg Hx - [facility] Procedures INSERTION OF INFUSION DEV INTO SUP VENA CAVA, PERC APPROACH (11/10/17) ULTRASONOGRAPHY OF SUPERIOR VENA CAVA, GUIDANCE (11/10/17) Family History: States: Unknown Family Hx - Social History Hx Tobacco Use: No Hx Alcohol Use: No Hx Substance Use: No - Immunization History Hx Tetanus Toxoid Vaccination: No Hx Influenza Vaccination: Yes Hx Pneumococcal Vaccination: No Review Of Systems Except As Marked, All Systems Reviewed And Found Negative. Musculoskeletal: Negative for: Leg Pain Skin: Positive for: Other (left lower leg skin tear). Negative for: Bruising Physical Exam - Physical Exam Appears: Well, Non-toxic, No Acute Distress Skin: Normal Color, Warm, Other (Left lower leg, anterior arnold, has a a few scattered superficial skin tears. No active bleeding.) Head: Atraumatic, Normacephalic Eye(s): bilateral: Normal Inspection Oral Mucosa: Moist Neck: Normal ROM Chest: Symmetrical Respiratory: Other (Respirations regular and unlabored.) Back: No Decreased ROM Extremity: Other (LLE: No tenderness, ecchymosis, swelling or tenderness. FROM of the LLE. See skin for abrasion noted to the left arnold.) Neurological/Psych: Oriented x3, Normal Speech, Normal Cognition, Normal Motor, Normal Sensation, Normal Reflexes ED Course And Treatment O2 Sat by Pulse Oximetry: 97 (on RA) Pulse Ox Interpretation: Normal Medical Decision Making Medical Decision Making: Plan: Tetanus 0.5ml IM Bacitracin 1ea TOP Keflex 500mg PO Wound care provided. Wound cleansed with betadine and saline. Bacitracin and nonstick dressing applied to wound. Instructed on wound care and need for wound check with PMD in 2 days. Rx written for keflex and bacitracin. Will return with any pain, redness, drainage, fevers or chills. Patient refuses tetanus vaccination update. Prophylactic antibiotics prescribed because patient is a diabetic. Able to ambulate. Disposition Counseled Patient/Family Regarding: Diagnosis, Need For Followup, Rx Given - Disposition Referrals: Manuela Geronimo MD [Staff Provider] - Disposition: HOME/ ROUTINE Disposition Time: 20:02 Condition: GOOD Additional Instructions: Cleanse wound twice daily with warm soapy water. Apply ointment and take medication as prescribed. Have wound check with your doctor in 2 days. Return if symptoms worsen or persist. Prescriptions: Cephalexin [Keflex] 500 mg PO Q6 7 Days #28 capsule Mupirocin 2% Cream [Bactroban Cream] 1 applic TOP BID #1 tube Instructions: Skin Abrasions, Wound Care (DC) Forms: General Discharge Instructions, [facility] (Rwandan) Print Language: PANAMANIAN - Clinical Impression Clinical Impression: Abrasion, leg w/o infection - PA / ACCOUNT SERVICE ASSOCIATE / Resident Statement MD/DO has reviewed & agrees with the documentation as recorded. - Scribe Statement The provider has reviewed the documentation as recorded by the Demetra Newton All medical record entries made by the Scribdakotah were at my direction and personally dictated by me. I have reviewed the chart and agree that the record accurately reflects my personal performance of the history, physical exam, medical decision making, and the department course for this patient. I have also personally directed, reviewed, and agree with the discharge instructions and disposition.
[2019-03-27] MEDS ORDERED: Bacitracin 500 Units/gm Oint Foilpak UD TOP ONE (19:52)
[2019-03-27] MEDS ORDERED: Tdap Vaccine 0.5 ml Vial (10-64 yrs) IM ONE (19:57)
[2019-03-27] MEDS ORDERED: Bacitracin 500 Units/gm Oint Foilpak UD ONE (19:58)
== END 2019-03-27 20:21 | disposition home or self-care (01) ==
LOC: C.ER 19:18
DX: S80.812A Abrasion, left lower leg, initial encounter (principal); W22.8XXA Striking against or struck by other objects, initial encounter; Y92.238 Other place in hospital as the place of occurrence of the external cause; Y99.0 Civilian activity done for income or pay